=== PATIENT | female | born 1940 ===

== ENCOUNTER 2018-10-07 07:41 | Inpatient (IN) | payer MEDICAID, MEDICARE ==
--- NOTE | 2018-10-07 08:04 | C.PDOC ---
History Of Present Illness 78 year old female, whose past medical history includes diabetes, presents to the ED with sister for evaluation of chest pain which has been intermittent for 3 days. Patient states her chest pain is worse with deep breaths and associated with a "cramping" sensation to her left arm and hand. Patient also complains of an itchy rash to her chest, back and abdominal regions which began one week ago. She denies initial blistering, states her symptoms are not worse at night, and there are no family members with similar symptoms. Patient states she arrived from [place] via car last night. She also reports chills and headache. She denies fever, cough, vomiting, abdominal pain, leg pain. Patient did not take anything for her symptoms and denies any recent falls, injuries or trauma. Time Seen by Provider: 10/07/18 07:57 Chief Complaint (Nursing): Chest Pain History Per: Patient History/Exam Limitations: no limitations Onset/Duration Of Symptoms: Days (3) Current Symptoms Are (Timing): Still Present Quality: "Pain" Exacerbating Factors: Deep Breathing Additional History Per: Patient Past Medical History Reviewed: Historical Data, Nursing Documentation, Vital Signs Vital Signs: Last Vital Signs Temp 98 F 10/07/18 07:48 Pulse 77 10/07/18 07:48 Resp 20 10/07/18 07:48 BP 154/73 H 10/07/18 07:48 Pulse Ox 99 10/07/18 07:48 - Medical History PMH: No Chronic Diseases Surgical History: No Surg Hx Family History: States: Unknown Family Hx - Social History Hx Alcohol Use: No Hx Substance Use: No - Immunization History Hx Tetanus Toxoid Vaccination: No Hx Influenza Vaccination: No Hx Pneumococcal Vaccination: No Review Of Systems Constitutional: Positive for: Chills. Negative for: Fever Cardiovascular: Positive for: Chest Pain Respiratory: Negative for: Cough Gastrointestinal: Negative for: Vomiting, Abdominal Pain Musculoskeletal: Negative for: Leg Pain Skin: Positive for: Rash (itchy, to chest, back and abdomen ) Neurological: Positive for: Headache Physical Exam - Physical Exam Appears: Non-toxic, No Acute Distress Skin: Warm, Dry, Rash (diffuse papular rash to upper chest, back and waistband region of abdomen. scratch perera noted to left back. no erythema, increased warmth, pustules or vesicles. sparing of bilateral upper and lower extremities. no rash to webbed spaces.) Head: Atraumatic, Normacephalic Eye(s): bilateral: Normal Inspection Oral Mucosa: Moist Neck: Supple Chest: Symmetrical, No Deformity, No Tenderness Cardiovascular: Rhythm Regular, No Murmur Respiratory: Normal Breath Sounds, No Rales, No Rhonchi, No Wheezing Gastrointestinal/Abdominal: Soft, No Tenderness, No Guarding, No Rebound Extremity: Normal ROM, No Pedal Edema, Capillary Refill (less than 2 seconds), No Swelling Neurological/Psych: Normal Speech, Normal Cognition, Normal Cranial Nerves, Normal Motor, Normal Sensation ED Course And Treatment - Laboratory Results Result Diagrams: 10/07/18 08:43 10/07/18 09:30 ECG: Interpreted By Me, Viewed By Me ECG Rhythm: Sinus Rhythm Interpretation Of ECG: Sinus rhythm at rate 75bpm. Right axis deviation. Short VT intervals. Normal QRS and QT intervals. No ST elevations and depressions. Rate From EC O2 Sat by Pulse Oximetry: 99 (on RA ) Pulse Ox Interpretation: Normal - Other Rad CXR X-Ray: Viewed By Me, Read By Radiologist Interpretation: Chest x-ray single frontal view. HISTORY: Chest pain. Comparison: None available. Findings: No focal infiltrate or effusion. Heart size within normal limits. Degenerative changes in the spine and shoulders. Im pression: No focal infiltrate or effusion. - CT Scan/US CT Head Other Rad Studies (CT/US): Read By Radiologist, Radiology Report Reviewed CT/US Interpretation: Date of service: 10/07/2018. PROCEDURE: CT HEAD WITHOUT CONTRAST. HISTORY: LUE tonic movements. COMPARISON: None available. TECHNIQUE: Axial computed tomography images were obtained through the head/brain without intravenous contrast. Radiation dose: Total exam DLP = 922.92 mGy-cm. This CT exam was performed using one or more of the following d ose reduction techniques: Automated exposure control, adjustment of the mA and/or kV according to patient size, and/or use of iterative reconstruction technique. FINDINGS: HEMORRHAGE: There is a with defined heterogeneous mixed high attenuation and low attenuation lesion at the right occipital lobe may represent mass or subacute parenchymal hematoma with surrounding edema. There is linear high attenuation at the right superior frontal lobe may represent subarachnoid hemorrhage best seen on image 22 series 2. BRAIN: Possible mass or subacute hematoma at the right occipital lobe measures 3.4 centimeter in the transverse diameter and 2.8 centimeter in the AP diameter. Volume loss and whi te matter changes likely represent chronic microvascular ischemic disease. There is sub centimeter focal low attenuation at the left putamen/lentiform nucleus may represent old infarct. VENTRICLES: Unremarkable. No hydrocephalus. CALVARIUM: Unremarkable. PARANASAL SINUSES: Unremarkable as visualized. No significant inflammatory changes. MASTOID AIR CELLS: Unremarkable as visualized. No inflammatory changes. OTHER FINDINGS: None. IMPRESSION: Mass like lesion measures 3.4 x 2.8 centimeter demonstrates high attenuation in the central portion and peripheral low attenuation. The differential consideration include mass versus subacute hematoma. Linear high attenuation at right frontal lobe suspicious for subarachnoid hemorrhage. The above findings were reported to and discussed with the referring physician Dr. Saldana on 10/07/2018 at 10 a.m. Medical Decision Making Medical Decision Making: Progress: Bloodwork, CXR, and EKG ordered and reviewed. Aspirin PO given for chest pain. As per nurse, patient was noted to have a jerking movement to her left arm and hand. CT Head ordered. Results of CT d/w patient/sister. Patient and sister deny any falls, trauma or head injury. 1013: Case discussed with Dr. Bravo (neurologist [employer] controller). States that since patient did not fall, symptoms indicate she may have a mass. Advised to order MRI with and without contrast and give one gram of Keppra. MRI results d/w patient. Patient agreeable w/POC to admit to hospital for further evaluation and management. 13:50 Case d/w Dr. Mariann Arana who accepts pt to his service. Disposition Counseled Patient/Family Regarding: Studies Performed, Diagnosis - Disposition Disposition: HOSPITALIZED Disposition Time: 13:51 Condition: STABLE - Clinical Impression Clinical Impression: SAH (subarachnoid hemorrhage), Chest pain, Hematoma of brain - Scribe Statement The provider has reviewed the documentation as recorded by the Scribe (Latasha Solis) Provider Attestation: All medical record entries made by the Scribe were at my direction and personally dictated by me. I have reviewed the chart and agree that the record accurately reflects my personal performance of the history, physical exam, medical decision making, and the department course for this patient. I have also personally directed, reviewed, and agree with the discharge instructions and disposition.
[2018-10-07] MEDS ORDERED: Aspirin 325 mg EC Tablets PO STA (08:35)
--- NOTE | 2018-10-07 08:59 | RAD ---
Chest x-ray single frontal view HISTORY: Chest pain. Comparison: None available. Findings: No focal infiltrate or effusion. Heart size within normal limits. Degenerative changes in the spine and shoulders. Impression: No focal infiltrate or effusion.
[2018-10-07 09:18] LABS: BASO % 0.5 % (0.0-2.0); EOS # 0.6 K/uL (0.0-0.7); EOS % 8.1 % (0.0-4.0); HEMOGLOBIN 13.7 g/dL (11.0-16.0); LYMPH # 2.2 K/uL (1.0-4.3); LYMPH % 31.8 % (20.0-40.0); MEAN CELL VOLUME 88.3 fL (81.0-99.0); MEAN CORPUSCULAR HEMOGLOBIN 29.2 pg (27.0-31.0); MEAN CORPUSCULAR HGB CONC 33.1 g/dL (33.0-37.0); MEAN PLATELET VOLUME 8.3 fL (7.2-11.7); MONO # 0.5 K/uL (0.0-0.8); MONO % 7.8 % (0.0-10.0); NEUT # 3.5 K/uL (1.8-7.0); NEUT % 51.8 % (50.0-75.0); NRBC % 0.1 % (0.0-2.0); RBC 4.69 Mil/uL (3.80-5.20); RED CELL DISTRIBUTION WIDTH 13.8 % (11.5-14.5); WHITE BLOOD COUNT 6.8 K/uL (4.8-10.8)
[2018-10-07 09:52] LABS: BLOOD UREA NITROGEN 10 mg/dL (7-17); CALCIUM 9.2 mg/dl (8.6-10.4); GFR NON-AFRICAN AMERICAN > 60
[2018-10-07 09:53] LABS: ALB/GLOB RATIO 1.4 (1.0-2.1); ALBUMIN 4.7 g/dL (3.5-5.0); ALT/SGPT < 6 U/L (9-52); AST/SGOT 51 U/L (14-36)
[2018-10-07 09:58] LABS: INR 0.9; PARTIAL THROMBOPLASTIN TIME 33 SECONDS (21-34); PROTHROMBIN TIME 10.2 SECONDS (9.7-12.2)
[2018-10-07 10:01] LABS: B-TYPE NATRIURETIC PEPTIDE 232 pg/mL (0-900)
--- NOTE | 2018-10-07 10:05 | CT ---
Date of service: 10/07/2018 PROCEDURE: CT HEAD WITHOUT CONTRAST. HISTORY: LUE tonic movements COMPARISON: None available. TECHNIQUE: Axial computed tomography images were obtained through the head/brain without intravenous contrast. Radiation dose: Total exam DLP = 922.92 mGy-cm. This CT exam was performed using one or more of the following dose reduction techniques: Automated exposure control, adjustment of the mA and/or kV according to patient size, and/or use of iterative reconstruction technique. FINDINGS: HEMORRHAGE: There is a with defined heterogeneous mixed high attenuation and low attenuation lesion at the right occipital lobe may represent mass or subacute parenchymal hematoma with surrounding edema. There is linear high attenuation at the right superior frontal lobe may represent subarachnoid hemorrhage best seen on image 22 series 2. BRAIN: Possible mass or subacute hematoma at the right occipital lobe measures 3.4 centimeter in the transverse diameter and 2.8 centimeter in the AP diameter. Volume loss and white matter changes likely represent chronic microvascular ischemic disease. There is sub centimeter focal low attenuation at the left putamen/lentiform nucleus may represent old infarct. VENTRICLES: Unremarkable. No hydrocephalus. CALVARIUM: Unremarkable. PARANASAL SINUSES: Unremarkable as visualized. No significant inflammatory changes. MASTOID AIR CELLS: Unremarkable as visualized. No inflammatory changes. OTHER FINDINGS: None. IMPRESSION: Mass like lesion measures 3.4 x 2.8 centimeter demonstrates high attenuation in the central portion and peripheral low attenuation. The differential consideration include mass versus subacute hematoma. Linear high attenuation at right frontal lobe suspicious for subarachnoid hemorrhage. The above findings were reported to and discussed with the referring physician Dr. Saldana on 10/07/2018 at 10 a.m.
[2018-10-07 10:12] LABS: D DIMER < 200 ng/mlDDU (0-243)
--- NOTE | 2018-10-07 12:51 | MRI ---
Date of service: 10/07/2018 PROCEDURE: MRI BRAIN WITH AND WITHOUT CONTRAST HISTORY: mass COMPARISON: Comparison is made with the previous same-day CT of the head without contrast TECHNIQUE: Multiplanar, multisequence MR images of the brain were obtained with and without intravenous contrast enhancement. FINDINGS: HEMORRHAGE: There is heterogeneous hyperintense T1 and hyperintense T2 signal lesion/focal hemorrhage at the right occipital posterior parietal lobe likely represent subacute hematoma. There is trace right parietal subdural hematoma with maximum thickness of 1.9 millimeter. There are also small foci of subarachnoid hemorrhage noted at the right parietal frontal lobe. DWI: No definite evidence of acute territorial infarction. BRAIN PARENCHYMA: No evidence of significant mass effect from the presumed right occipital parenchymal hematoma. Mild surrounding edema is noted. Mild volume loss and mild chronic microvascular white matter ischemic disease. ENHANCEMENT: No definite evidence of enhancing mass lesion in the current study. VENTRICLES: Unremarkable. No hydrocephalus. CRANIUM: Unremarkable. ORBITS: Grossly unremarkable. PARANASAL SINUSES/MASTOIDS: Clear VASCULAR SYSTEM: Skull base flow voids intact. OTHER FINDINGS: None . IMPRESSION: 3.7 x 3.2 centimeter heterogeneous hyperintense T1 and T2 signal structure at right occipital lobe likely represent subacute/delayed acute parenchymal hematoma. Small/trace right temporal subdural hemorrhage with maximum thickness of 1.9 millimeter. Foci of subarachnoid hemorrhage at the right frontal parietal lobe. Volume loss and chronic microvascular white matter ischemic disease are noted. No definite evidence of enhancing mass lesion in the brain. Continuous follow-up reassessment by CT and MRI is suggested.
--- NOTE | 2018-10-07 22:05 | CP.PCM.HP ---
Present on Admission - Present on Admission Any Indicators Present on Admission: No Past Patient History - Past Social History Smoking Status: Never Smoked - ENDOCRINE/METABOLIC Hx Diabetes Mellitus Type 2: Yes - PSYCHIATRIC Hx Substance Use: No - SURGICAL HISTORY Hx Surgeries: No - ANESTHESIA Hx Anesthesia: No Meds Allergies/Adverse Reactions: Allergies Allergy/AdvReac Type Severity Reaction Status Date / Time No Known Allergies Allergy Verified 10/07/18 07:51 Results - Vital Signs Recent Vital Signs: Last Vital Signs Temp 98.6 F 10/07/18 21:39 Pulse 75 10/07/18 21:39 Resp 18 10/07/18 21:39 BP 130/74 10/07/18 21:39 Pulse Ox 97 10/07/18 21:39 - Labs Result Diagrams: 10/07/18 08:43 10/07/18 09:30 Labs: Laboratory Results - last 24 hr 10/07/18 10/07/18 10/07/18 07:53 08:43 09:30 WBC 6.8 RBC 4.69 Hgb 13.7 Hct 41.4 MCV 88.3 MCH 29.2 MCHC 33.1 RDW 13.8 Plt Count 301 MPV 8.3 Neut % (Auto) 51.8 Lymph % (Auto) 31.8 Jerome % (Auto) 7.8 Eos % (Auto) 8.1 H Baso % (Auto) 0.5 Neut # (Auto) 3.5 Lymph # (Auto) 2.2 Jerome # (Auto) 0.5 Eos # (Auto) 0.6 Baso # (Auto) 0.0 PT INR APTT D-Dimer, Quantitative Sodium 135 Potassium 4.9 Chloride 100 Carbon Dioxide 23 Anion Gap 16 BUN 10 Creatinine 0.5 L Est GFR ( Amer) > 60 Est GFR (Non-Af Amer) > 60 POC Glucose (mg/dL) 280 H Random Glucose 251 H Calcium 9.2 Magnesium 1.9 Total Bilirubin 1.5 H AST 51 H ALT < 6 L Alkaline Phosphatase 96 Troponin I 0.0130 NT-Pro-B Natriuret Pep 232 Total Protein 8.0 Albumin 4.7 Globulin 3.3 Albumin/Globulin Ratio 1.4 10/07/18 09:30 WBC RBC Hgb Hct MCV MCH MCHC RDW Plt Count MPV Neut % (Auto) Lymph % (Auto) Jerome % (Auto) Eos % (Auto) Baso % (Auto) Neut # (Auto) Lymph # (Auto) Jerome # (Auto) Eos # (Auto) Baso # (Auto) PT 10.2 INR 0.9 APTT 33 D-Dimer, Quantitative < 200 Sodium Potassium Chloride Carbon Dioxide Anion Gap BUN Creatinine Est GFR ( Amer) Est GFR (Non-Af Amer) POC Glucose (mg/dL) Random Glucose Calcium Magnesium Total Bilirubin AST ALT Alkaline Phosphatase Troponin I NT-Pro-B Natriuret Pep Total Protein Albumin Globulin Albumin/Globulin Ratio
[2018-10-07] MEDS: Hydrocortisone 2.5% Oint (20 gm) TOP SCH (22:42)
[2018-10-07] MEDS: (Novolin R) Insulin Human Regular 100 units/ml vial SC SCH (22:42)
[2018-10-07 23:26] LABS: CK-MB 0.31 ng/mL (0.0-3.38)
[2018-10-08] MEDS ORDERED: Pneumococcal 23-Valent Vaccine IM ONE (00:29)
--- NOTE | 2018-10-08 03:53 | HP ---
CHIEF COMPLAINT: Chest pain and dizziness. HISTORY OF PRESENT ILLNESS: This is a 78-year-old female with history of type 2 diabetes and who is noncompliant with her diet, medication, and followup. The patient in her usual status of health, is ambulatory and independent in activities of daily living. The patient was followed until the day of admission. She started having substernal chest pain, dull, nonradiating, not associated with diaphoresis. Along with that, she was having headache, dizziness, and she was also having cramping sensation in the left arm and hand and there was movement in the left arm which was noted by ER staff. According to her, chest pain is worse with deep inspiration, and the patient also has a itchy rash on the chest and arms and the back. The patient denies any initial blistering. According to her, her symptoms are not worse at night. She denies any chest pain on exertion. She denies any history of orthopnea, paroxysmal nocturnal dyspnea. Her headache is diffuse which is sharp which is intense when she is dizzy. By dizzy she means she is having off balance. She just arrived from [place] last night. She also has chills, headache. She denies any history of head injury, fall, loss of consciousness. There is no history of prior seizure. She denies any history of alcohol, drug abuse, and she denies any history of prior similar episode. There is no history of abdominal pain, nausea, vomiting, diarrhea. There is no history of polyuria, polydipsia, polyphagia. There is no history of sneezing, itchy eyes, itchy nose. There is no history of skin rash. There is no history of back pain, hip pain. She denies any history of tingling, numbness in the legs. PAST MEDICAL HISTORY: Type 2 diabetes. SOCIAL HISTORY: She is nonsmoker, non-ETOH user. CURRENT MEDICATIONS: Janumet. FAMILY HISTORY: Noncontributory. PHYSICAL EXAMINATION: GENERAL: An elderly female who is weak. Looks sick. VITAL SIGNS: Blood pressure is 110/50, pulse 77, respiratory rate 16, temperature 98.2. SKIN: Pale. No bruises. No purpura. No petechiae. No ecchymosis. HEENT: Atraumatic and normocephalic. Negative pallor. Negative jaundice. Extraocular movements are intact. NECK: Supple. No JVD. No lymph nodes. No thyromegaly. No carotid bruit. CHEST WALL: Bilateral symmetrical expansion. LUNGS: Clear. No rales. No rhonchi. CARDIOVASCULAR SYSTEM: PMI not localized. S1 and S2. Regular. No heave. No thrill. ABDOMEN: Soft, nontender. Bowel sounds are positive. EXTREMITIES: No clubbing, cyanosis, or edema. CENTRAL NERVOUS SYSTEM: The patient is awake, alert, and oriented x3. Cranial nerves II through XII are normal. Power 5/5 x4. Plantars are downgoing. Unable to get . She is bedbound. ASSESSMENT: 1. Intracerebral bleed with subarachnoid hemorrhage and there are hematomas in the brain. There is no trauma. There is no history of prior aneurysm. 2. Type 2 diabetes. 3. Seizure which was induced by the intracerebral bleed. PLAN: Admit. Neuro check. Fall, seizure precaution. Repeat CT of the head there. Neurology evaluation. Physical therapy. Jose Arana MD
[2018-10-08] MEDS: (Novolin R) Insulin Human Regular 100 units/ml vial SC SCH ×3 (08:39→21:42)
[2018-10-08] MEDS: Hydrocortisone 2.5% Oint (20 gm) TOP SCH ×2 (09:59→19:00)
--- NOTE | 2018-10-08 10:34 | CT ---
Date of service: 10/08/2018 PROCEDURE: CT HEAD WITHOUT CONTRAST. HISTORY: Intracranial bleed COMPARISON: 10/07/2018 TECHNIQUE: Axial computed tomography images were obtained through the head/brain without intravenous contrast. Radiation dose: Total exam DLP = 894.42 mGy-cm. This CT exam was performed using one or more of the following dose reduction techniques: Automated exposure control, adjustment of the mA and/or kV according to patient size, and/or use of iterative reconstruction technique. FINDINGS: HEMORRHAGE: Again identified is a prominent 3.7 x 2.7 centimeter ovoid area of central increased attenuation and peripheral low attenuation in the right occipital lobe which may represent a mass or subacute parenchymal hematoma with surrounding edema or additional etiology. Correlation with MRI would be helpful further evaluation if clinically indicated. Overall this appears stable since the prior study. Linear high attenuation at the right superior posterior frontal parietal region best demonstrated on series 4 images 41 through 49 consistent with subarachnoid hemorrhage which appears stable. BRAIN: Again identified is a prominent 3.7 x 2.7 centimeter ovoid area of central increased attenuation and peripheral low attenuation in the right occipital lobe which may represent a mass or subacute parenchymal hematoma with surrounding edema or additional etiology. Correlation with MRI would be helpful further evaluation if clinically indicated. Scattered focal lucencies in the subcortical and periventricular white matter suggestive for chronic microvascular ischemic change. Persistent 6 millimeter left basal ganglia lacunar infarct. VENTRICLES: Unremarkable. No hydrocephalus. CALVARIUM: Unremarkable. PARANASAL SINUSES: Unremarkable as visualized. No significant inflammatory changes. MASTOID AIR CELLS: Unremarkable as visualized. No inflammatory changes. OTHER FINDINGS: None. IMPRESSION: No significant interval change since the prior study. Again identified is a prominent 3.7 x 2.7 centimeter ovoid area of central increased attenuation and peripheral low attenuation in the right occipital lobe which may represent a mass or subacute parenchymal hematoma with surrounding edema or additional etiology. Correlation with MRI would be helpful for further evaluation if clinically indicated. Overall this appears stable since the prior study. Linear high attenuation at the right superior posterior frontal parietal region best demonstrated on series 4 images 41 through 49 consistent with subarachnoid hemorrhage which appears stable. Chronic microvascular ischemic change. Left basal ganglia lacunar infarct. Correlation with contrast-enhanced MRI may be helpful for further evaluation if clinically indicated.
--- NOTE | 2018-10-08 16:25 | CP.PCM.CON ---
History of Present Illness - History of Present Illness History of Present Illness: Neurology Consultation Note: Consult requested by Dr. Arana Mrs. Clark is a 78-year-old woman, who drove from [place] two days ago, and presented to the ED yesterday with complaints of chest pain as well as left arm discomfort and pain. She had a CT scan of the head done, that showed a right occipital chronic appearing hemorrhage as well as slight SDH and SAH. When I spoke with the patient and her daughter today, they described the left arm pain as a cramping, stiffness and inability to move it, associated with contortion of the face and twisting of the neck. This lasts for several minutes then resolves. The patient also complained of some changes in her vision, and has had trouble with ambulating normally as a result. Review of Systems - Constitutional Constitutional: As Per HPI - EENT Eyes: As Per HPI Ears: absent: As Per HPI, Decreased Hearing, Ear Discharge, Ear Pain, Tinnitus, Abnormal Hearing, Disequilibrium, Dizziness, Other Nose/Mouth/Throat: absent: As Per HPI, Epistaxis, Nasal Congestion, Nasal Discharge, Nasal Obstruction, Nasal Trauma, Nose Pain, Post Nasal Drip, Sinus Pain, Sinus Pressure, Bleeding Gums, Change in Voice, Dental Pain, Dry Mouth, Dysphagia, Halitosis, Hoarsness, Lip Swelling, Mouth Lesions, Mouth Pain, Odynophagia, Sore Throat, Throat Swelling, Tongue Swelling, Facial Pain, Neck Pain, Neck Mass, Other - Cardiovascular Cardiovascular: absent: As Per HPI, Acrocyanosis, Chest Pain, Chest Pain at Rest, Chest Pain with Activity, Claudication, Diaphoresis, Dyspnea, Dyspnea on Exertion, Edema, Irregular Heart Rhythm, Pain Radiating to Arm/Neck/Jaw, Leg Edema, Leg Ulcers, Lightheadedness, Orthopnea, Palpitations, Paroxysmal Nocturnal Dyspnea, Pedal Edema, Radiating Pain, Rapid Heart Rate, Slow Heart Rate, Syncope, Other - Respiratory Respiratory: absent: As Per HPI, Cough, Dyspnea, Hemoptysis, Dyspnea on Exertion, Wheezing, Snoring, Stridor, Pain on Inspiration, Chest Congestion, Excessive Mucous Production, Change in Mucous Color, Pain with Coughing, Other - Musculoskeletal Musculoskeletal: absent: As Per HPI, Abnormal Gait, Arthralgias, Atrophy, Back Pain, Deformity, Joint Swelling, Limited Range of Motion, Loss of Height, Muscle Cramps, Muscle Weakness, Myalgias, Neck Pain, Numbness, Radiating Pain into Limb, Stiffness, Tingling, Other - Integumentary Integumentary: absent: As Per HPI, Acne, Alopecia, Bleeding Lesions, Change in Hair, Change in Nails, Change in Pigmentation, Changing Lesions, Dry Skin, Erythema, Furuncle, Hirsutism, Lesions, New Lesions, Non-Healing Lesions, Photosensitivity, Pruritus, Rash, Skin Pain, Skin Ulcer, Sores, Striae, Swelling, Unusual Bruising, Wounds, Jaundice, Other - Neurological Neurological: As Per HPI - Psychiatric Psychiatric: absent: As Per HPI, Abnormal Sleep Pattern, Anhedonia, Anxiety, Auditory Hallucinations, Behavioral Changes, Change in Appetite, Change in Libido, Confusion, Depression, Difficulty Concentrating, Hallucinations, Homicidal Ideation, Hopelessness, Irritability, Memory Loss, Mood Swings, Panic Attacks, Paranoia, Suicidal Ideation, Visual Hallucinations, Tactile Hallucinations, Other - Endocrine Endocrine: absent: As Per HPI, Change in Body Appearance, Change in Libido, Cold Intolorance, Deepening of Voice, Excessive Sweating, Fatigue, Flushing, Heat Intolorance, Increase in Ring/Shoe/Hat Size, Palpitations, Polydipsia, Polyphagia, Polyuria, Other - Hematologic/Lymphatic Hematologic: absent: As Per HPI, Easy Bleeding, Easy Bruising, Lymphadenopathy, Other Past Patient History - Past Social History Smoking Status: Never Smoked - CARDIAC Hx Cardiac Disorders: No - PULMONARY Hx Respiratory Disorders: No - NEUROLOGICAL Hx Transient Ischemic Attacks (TIA): No - HEENT Hx HEENT Problems: No - RENAL Hx Chronic Kidney Disease: No - ENDOCRINE/METABOLIC Hx Diabetes Mellitus Type 2: Yes - HEMATOLOGICAL/ONCOLOGICAL Hx Blood Transfusions: No - INTEGUMENTARY Other/Comment: skin rashes on chest, lef arm and left upper back. - MUSCULOSKELETAL/RHEUMATOLOGICAL Hx Musculoskeletal Disorders: No Hx Falls: No - GASTROINTESTINAL Hx Gastrointestinal Disorders: No - GENITOURINARY/GYNECOLOGICAL Hx Genitourinary Disorders: No - PSYCHIATRIC Hx Substance Use: No - SURGICAL HISTORY Hx Surgeries: Yes Hx Appendectomy: Yes - ANESTHESIA Hx Anesthesia: No Hx Anesthesia Reactions: No Hx Malignant Hyperthermia: No Has any member of the family had a problem w/ anesthesia?: No Meds Allergies/Adverse Reactions: Allergies Allergy/AdvReac Type Severity Reaction Status Date / Time No Known Allergies Allergy Verified 10/07/18 07:51 - Medications Medications: Current Medications Acetaminophen (Tylenol 325mg Tab) 650 mg PO Q6 PRN PRN Reason: headache Hydrocortisone (Cortizone 2.5%) 1 gm TOP BID [facility] Last Admin: 10/08/18 09:59 Dose: 1 applic Influenza Virus Vaccine (Flucelvax Quad [id number] Syr) 60 mcg IM .ONCE ONE Stop: 10/10/18 10:01 Insulin Human Regular (Novolin R) 0 unit SC ACHS [facility]; Protocol Last Admin: 10/08/18 12:49 Dose: 3 units Levetiracetam (Keppra) 500 mg PO BID [facility] Last Admin: 10/08/18 10:00 Dose: 500 mg Pneumococcal Polyvalent Vaccine (Pneumovax 23 Vaccine) 0.5 ml IM .ONCE ONE Stop: 10/10/18 10:01 Rosuvastatin Calcium (Crestor) 10 mg PO [facility] Last Admin: 10/07/18 22:43 Dose: 10 mg Physical Exam - Constitutional Appears: Well - Head Exam Head Exam: ATRAUMATIC, NORMAL INSPECTION, NORMOCEPHALIC - Eye Exam Eye Exam: EOMI, Normal appearance, PERRL Pupil Exam: NORMAL ACCOMODATION, PERRL - ENT Exam ENT Exam: Mucous Membranes Moist, Normal Exam - Neck Exam Neck exam: Positive for: Normal Inspection - Respiratory Exam Respiratory Exam: Clear to Auscultation Bilateral, NORMAL BREATHING PATTERN - Cardiovascular Exam Cardiovascular Exam: REGULAR RHYTHM, +S1, +S2 - GI/Abdominal Exam GI & Abdominal Exam: Normal Bowel Sounds, Soft. absent: Tenderness - Extremities Exam Extremities exam: Positive for: normal inspection - Back Exam Back exam: NORMAL INSPECTION - Neurological Exam Neurological exam: Alert, CN II-XII Intact, Normal Gait, Oriented x3 Additional comments: Left side slight visual deficit noted. Left arm pronator drift. Reflexes brisk on the left with upgoing plantar response. Gait is wide-based. - Psychiatric Exam Psychiatric exam: Normal Affect, Normal Mood - Skin Skin Exam: Dry, Intact, Normal Color, Warm Results - Vital Signs Recent Vital Signs: Last Vital Signs Temp 98.2 F 10/08/18 07:41 Pulse 75 10/08/18 12:00 Resp 20 10/08/18 07:41 BP 124/52 L 10/08/18 07:41 Pulse Ox 95 10/08/18 08:00 - Labs Result Diagrams: 10/07/18 08:43 10/07/18 09:30 Labs: Laboratory Results - last 24 hr 10/07/18 22:56 Total Creatine Kinase 34 CK-MB (Mass) 0.31 Troponin I < 0.0120 Assessment & Plan (1) ICH (intracerebral hemorrhage) Assessment and Plan: Does not recall any trauma, this may be spontaneous, or could be hemorrhagic transformation of a previous ischemic stroke. The bleed appears chronic based on the resolution pattern on MRI and CT head. No further imaging is needed at this time. Will repeat MRI in 3 months. Status: Acute (2) Seizure Assessment and Plan: Continue Keppra 500 mg BID and will order EEG for further evaluation of focal seizures. Thank you for this consultation. Status: Acute
--- NOTE | 2018-10-08 21:31 | CP.PCM.PN ---
Subjective - Date & Time of Evaluation Date of Evaluation: 10/08/18 Time of Evaluation: 09:20 - Subjective Subjective: dictated Objective - Vital Signs/Intake and Output Vital Signs (last 24 hours): Temp Pulse Resp BP Pulse Ox 97.7 F 76 20 121/59 L 99 10/08/18 15:20 10/08/18 18:45 10/08/18 15:20 10/08/18 15:20 10/08/18 15:20 Intake and Output: 10/08/18 10/09/18 18:59 06:59 Intake Total 400 Balance 400 - Medications Medications: Current Medications Acetaminophen (Tylenol 325mg Tab) 650 mg PO Q6 PRN PRN Reason: headache Hydrocortisone (Cortizone 2.5%) 1 gm TOP BID [facility] Last Admin: 10/08/18 09:59 Dose: 1 applic Influenza Virus Vaccine (Flucelvax Quad [id number] Syr) 60 mcg IM .ONCE ONE Stop: 10/10/18 10:01 Insulin Human Regular (Novolin R) [address] [facility]; Protocol Last Admin: 10/08/18 12:49 Dose: 3 units Levetiracetam (Keppra) 500 mg PO BID [facility] Last Admin: 10/08/18 17:38 Dose: 500 mg Pneumococcal Polyvalent Vaccine (Pneumovax 23 Vaccine) 0.5 ml IM .ONCE ONE Stop: 10/10/18 10:01 Rosuvastatin Calcium (Crestor) 10 mg PO [facility] Last Admin: 10/07/18 22:43 Dose: 10 mg - Labs Labs: 10/07/18 08:43 10/07/18 09:30 PT 10.2 SECONDS (9.7-12.2) 10/07/18 09:30 INR 0.9 10/07/18 09:30 APTT 33 SECONDS (21-34) 10/07/18 09:30
--- NOTE | 2018-10-09 02:27 | PN ---
DATE: 10/08/2018 SUBJECTIVE: The patient is feeling better. She is more alert. Decreased headache. She is more stable. She is more alert. No nausea or vomiting. PHYSICAL EXAMINATION: VITAL SIGNS: Blood pressure 121/59, pulse 76, respiratory rate 20, temperature 97.7. LUNGS: Clear. CARDIOVASCULAR SYSTEM: S1 and S2, regular. ABDOMEN: Soft and nontender. Bowel sounds are positive. ASSESSMENT: 1. Intracerebral bleed. 2. Hypertension. 3. Type 2 diabetes. PLAN: The patient's seizure is due to her intracerebral bleed. We will medication. We will monitor the patient. Jose Arana MD
[2018-10-09] MEDS: (Novolin R) Insulin Human Regular 100 units/ml vial SC SCH ×4 (08:26→21:15)
[2018-10-09] MEDS: Hydrocortisone 2.5% Oint (20 gm) TOP SCH ×2 (10:42→17:56)
--- NOTE | 2018-10-09 11:56 | CARD ---
APPROVED REPORT Date of service: 10/08/2018 EXAM: Two-dimensional and M-mode echocardiogram with Doppler and color Doppler. Other Information Quality : AverageRhythm : NSR INDICATION CAD Chest Pain 2D DIMENSIONS LA [id number] (18-58mL) M-Mode DIMENSIONS RVDd1.28 (2.1-3.2cm)Left Atrium (MM)3.22 (2.5-4.0cm) IVSd0.79 (0.7-1.1cm)Aortic Root2.58 (2.2-3.7cm) LVDd4.71 (4.0-5.6cm)Aortic Cusp Exc.1.55 (1.5-2.0cm) PWd0.91 (0.7-1.1cm)FS (%) 25 % LVDs3.55 (2.0-3.8cm)LVEF (%)49 (>50%) Aortic Valve AoV Peak Ltxbwqdc156.6cm/Skye Peak GR.5mmHg Mitral Valve MV E Gzdibrpd09.5cm/sMV A Wfkycklg90.9cm/sE/A ratio0.7 TDI Lateral E' Peak V9.77cm/sMedial E' Peak V5.45cm/sE/Lateral E'6.9 E/Medial E'12.4 Tricuspid Valve TR Peak Ieaijfgk407rh/sTR Peak Gr.[id number] <Conclusion> Left ventricle: thickness: normal; size: normal; overall ejection fraction: 50%: diastolic filling pressures: normal Mitral valve: annulus: normal: leaflets: normal: excursion: normal; no significant trans-mitral gradient: no significant incompetence: left atrium: normal Aortic valve: leaflets: normal: excursion: normal; no significant trans-aortic gradient: No significant incompetence: aortic root: normal Right sided Structures: Pulmonary valve: normal; no significant incompetence; Tricuspid valve: normal; no significant incompetence: Intra-cardiac hemodynamics: pulmonary systolic pressures: normal; central venous pressures: normal No pericardial effusion
--- NOTE | 2018-10-09 23:20 | CP.PCM.PN ---
Subjective - Date & Time of Evaluation Date of Evaluation: 10/09/18 Time of Evaluation: 18:40 - Subjective Subjective: dictated Objective - Vital Signs/Intake and Output Vital Signs (last 24 hours): Temp Pulse Resp BP Pulse Ox 98.3 F 105 H 18 104/65 99 10/09/18 15:50 10/09/18 18:00 10/09/18 15:50 10/09/18 15:50 10/09/18 16:32 - Medications Medications: Current Medications Acetaminophen (Tylenol 325mg Tab) 650 mg PO Q6 PRN PRN Reason: headache Last Admin: 10/09/18 21:33 Dose: 650 mg Hydrocortisone (Cortizone 2.5%) 1 gm TOP BID [facility] Last Admin: 10/09/18 17:56 Dose: 1 applic Influenza Virus Vaccine (Flucelvax Quad [id number] Syr) 60 mcg IM .ONCE ONE Stop: 10/10/18 10:01 Insulin Human Regular (Novolin R) 0 unit SC [facility]; Protocol Last Admin: 10/09/18 21:15 Dose: Not Given Levetiracetam (Keppra) 500 mg PO BID [facility] Last Admin: 10/09/18 17:49 Dose: 500 mg Metformin HCl (Glucophage Xr) 1,000 mg PO BRK [facility] Last Admin: 10/09/18 08:26 Dose: 1,000 mg Pneumococcal Polyvalent Vaccine (Pneumovax 23 Vaccine) 0.5 ml IM .ONCE ONE Stop: 10/10/18 10:01 Rosuvastatin Calcium (Crestor) 10 mg PO HS [facility] Last Admin: 10/09/18 21:34 Dose: 10 mg Sitagliptin Phosphate (Januvia) 50 mg PO DAILY [facility] Last Admin: 10/09/18 09:46 Dose: 50 mg - Labs Labs: 10/07/18 08:43 10/07/18 09:30 PT 10.2 SECONDS (9.7-12.2) 10/07/18 09:30 INR 0.9 10/07/18 09:30 APTT 33 SECONDS (21-34) 10/07/18 09:30
--- NOTE | 2018-10-10 03:49 | PN ---
DATE: 10/09/2018 SUBJECTIVE: The patient has decreased headache. No fever. No chills. She has been seen by Neurology. PHYSICAL EXAMINATION: VITAL SIGNS: Blood pressure 104/65, pulse 84, respiratory rate 18, temperature 98.3, afebrile. LUNGS: Clear. No rales. No rhonchi. CARDIOPULMONARY SYSTEM: S1 and S2, regular. ABDOMEN: Soft, nontender. Bowel sounds are positive. ASSESSMENT: 1. Intracerebral bleed. 2. Hypertension. 3. Type 2 diabetes. PLAN: Physical therapy. Rehab. Monitor the patient. Jose Arana MD
[2018-10-10] MEDS: (Novolin R) Insulin Human Regular 100 units/ml vial SC SCH ×5 (08:46→23:01)
[2018-10-10] MEDS ORDERED: Pneumococcal 23-Valent Vaccine IM ONE (10:00)
[2018-10-10] MEDS ORDERED: Influenza Vaccine 60 mcg/0.5 mL SYR (4YR UP) IM ONE (10:00)
[2018-10-10] MEDS: Hydrocortisone 2.5% Oint (20 gm) TOP SCH ×2 (11:10→17:58)
--- NOTE | 2018-10-10 14:16 | CP.PCM.PN ---
Subjective - Date & Time of Evaluation Date of Evaluation: 10/10/18 Time of Evaluation: 14:13 - Subjective Subjective: Neuro Follow-Up Note: Mrs. Clark was evaluated this afternoon at bedside. Family present. Pt offers no new complaints today. She states that she still has weakness to her left arm. Per family member, the pt had an episode today of abnormal movements to her left arm just before the EEG. This lasted a few seconds per family. pt presently denies h/a, dizziness, visual changes, chest pain, palpitations, sob, cough, abd pain, n/v/d, paresthesias. Objective - Vital Signs/Intake and Output Vital Signs (last 24 hours): Temp Pulse Resp BP Pulse Ox 97.9 F 86 18 113/50 L 100 10/10/18 07:00 10/10/18 07:00 10/10/18 07:00 10/10/18 07:00 10/10/18 07:00 - Medications Medications: Current Medications Acetaminophen (Tylenol 325mg Tab) 650 mg PO Q6 PRN PRN Reason: headache Last Admin: 10/09/18 21:33 Dose: 650 mg Hydrocortisone (Cortizone 2.5%) 1 gm TOP BID [facility] Last Admin: 10/10/18 11:10 Dose: 1 applic Insulin Human Regular (Novolin R) 0 unit SC [facility]; Protocol Last Admin: 10/10/18 12:43 Dose: 4 units Levetiracetam (Keppra) 500 mg PO BID [facility] Last Admin: 10/10/18 11:10 Dose: 500 mg Metformin HCl (Glucophage Xr) 1,000 mg PO BRK [facility] Last Admin: 10/10/18 08:46 Dose: 1,000 mg Rosuvastatin Calcium (Crestor) 10 mg PO HS [facility] Last Admin: 10/09/18 21:34 Dose: 10 mg Sitagliptin Phosphate (Januvia) 50 mg PO DAILY [facility] Last Admin: 10/10/18 11:10 Dose: 50 mg - Labs Labs: 10/07/18 08:43 10/07/18 09:30 PT 10.2 SECONDS (9.7-12.2) 10/07/18 09:30 INR 0.9 10/07/18 09:30 APTT 33 SECONDS (21-34) 10/07/18 09:30 - Constitutional Appears: Well, Non-toxic, No Acute Distress - Head Exam Head Exam: ATRAUMATIC, NORMAL INSPECTION, NORMOCEPHALIC - Eye Exam Eye Exam: EOMI, Normal appearance, PERRL Pupil Exam: NORMAL ACCOMODATION, PERRL - ENT Exam ENT Exam: Mucous Membranes Moist - Neck Exam Neck Exam: Full ROM, Normal Inspection - Respiratory Exam Respiratory Exam: NORMAL BREATHING PATTERN - Extremities Exam Extremities Exam: Normal Inspection. absent: Calf Tenderness, Pedal Edema Additional comments: Able to move all extremities with some weakness to LUE + Left pronator drift noted - Neurological Exam Neurological Exam: Alert, Awake, CN II-XII Intact, Oriented x3 Neuro motor strength exam: Left Upper Extremity: 3 (nursing coordinator 3/5), Right Upper Extremity: 5 (nursing coordinator 5/5), Left Lower Extremity: 4, Right Lower Extremity: 4 Additional comments: Speech clear, fluid No facial asymmetry noted Able to move all extremities with some weakness to the LUE + Left pronator drift noted + dysmetria to left No sensory deficits Gait not assessed; PT notes reviewed - Psychiatric Exam Psychiatric exam: Normal Affect, Normal Mood - Skin Skin Exam: Normal Color Assessment and Plan (1) ICH (intracerebral hemorrhage) Assessment & Plan: Imaging reviewed: -Brain MRI (10/07/18): 3.7 x 3.2 centimeter heterogeneous hyperintense T1 and T2 signal structure at right occipital lobe likely represent subacute/delayed acute parenchymal hematoma. Small/trace right temporal subdural hemorrhage with maximum thickness of 1.9 millimeter. Foci of subarachnoid hemorrhage at the right frontal parietal lobe. Volume loss and chronic microvascular white matter ischemic disease are noted. No definite evidence of enhancing mass lesion in the brain. Continuous follow-up reassessment by CT and MRI is suggested. -CT Head (10/08/18): No significant interval change since the prior study. Again identified is a prominent 3.7 x 2.7 centimeter ovoid area of central increased attenuation and peripheral low attenuation in the right occipital lobe which may represent a mass or subacute parenchymal hematoma with surrounding edema or additional etiology. Correlation with MRI would be helpful for further evaluation if clinically indicated. Overall this appears stable since the prior study. Linear high attenuation at the right superior posterior frontal parietal region best demonstrated on series 4 images 41 through 49 consistent with subarachnoid hemorrhage which appears stable. Chronic microvascular ischemic change. Left basal ganglia lacunar infarct. Correlation with contrast-enhanced MRI may be helpful for further evaluation if clinically indicated. -CT Head (10/07/18): Mass like lesion measures 3.4 x 2.8 centimeter demonstrates high attenuation in the central portion and peripheral low attenuation. The d ifferential consideration include mass versus subacute hematoma. Linear high attenuation at right frontal lobe suspicious for subarachnoid hemorrhage. -Repeat MRI in 3 months. -Continue to hold AC or antiplatelets 2/2 intracranial hemorrhage. Status: Acute (2) Seizure Assessment & Plan: Imaging reviewed: -Brain MRI (10/07/18): 3.7 x 3.2 centimeter heterogeneous hyperintense T1 and T2 signal structure at right occipital lobe likely represent subacute/delayed acute parenchymal hematoma. Small/trace right temporal subdural hemorrhage with maximum thickness of 1.9 millimeter. Foci of subarachnoid hemorrhage at the right frontal parietal lobe. Volume loss and chronic microvascular white matter ischemic disease are noted. No definite evidence of enhancing mass lesion in the brain. Continuous follow-up reassessment by CT and MRI is suggested. -CT Head (10/08/18): No significant interval change since the prior study. Again identified is a prominent 3.7 x 2.7 centimeter ovoid area of central increased attenuation and peripheral low attenuation in the right occipital lobe which may represent a mass or subacute parenchymal hematoma with surrounding edema or additional etiology. Correlation with MRI would be helpful for further evaluation if clinically indicated. Overall this appears stable since the prior study. Linear high attenuation at the right superior posterior frontal parietal region best demonstrated on series 4 images 41 through 49 consistent with subarachnoid hemorrhage which appears stable. Chronic microvascular ischemic change. Left basal ganglia lacunar infarct. Correlation with contrast-enhanced MRI may be helpful for further evaluation if clinically indicated. -CT Head (10/07/18): Mass like lesion measures 3.4 x 2.8 centimeter demonstrates high attenuation in the central portion and peripheral low attenuation. The differential consideration include mass versus subacute hematoma. Linear high attenuation at right frontal lobe suspicious for subarachnoid hemorrhage. -EEG done today, results pending. -Continue Keppra 500 mg PO BID for now. -Continue seizure precautions. -Notify neuro team of any acute changes in pt's condition. Laura Valdes DNP, CLINICAL DOCUMENT IMPROVEMENT EDUCATOR Discussed with Dr. Reed Status: Acute
[2018-10-10 16:14] VITALS: RESP 20
--- NOTE | 2018-10-10 21:14 | CP.PCM.PN ---
Subjective - Date & Time of Evaluation Date of Evaluation: 10/10/18 Time of Evaluation: 08:40 - Subjective Subjective: dictated Objective - Vital Signs/Intake and Output Vital Signs (last 24 hours): Temp Pulse Resp BP Pulse Ox 97.8 F 90 20 99/60 L 96 10/10/18 15:00 10/10/18 15:00 10/10/18 15:00 10/10/18 15:00 10/10/18 15:00 - Medications Medications: Current Medications Acetaminophen (Tylenol 325mg Tab) 650 mg PO Q6 PRN PRN Reason: headache Last Admin: 10/09/18 21:33 Dose: 650 mg Hydrocortisone (Cortizone 2.5%) 1 gm TOP BID [facility] Last Admin: 10/10/18 17:58 Dose: 1 applic Insulin Glargine (Lantus) [address] [facility] Insulin Human Regular (Novolin R) 0 unit SC ACHS [facility]; Protocol Last Admin: 10/10/18 18:00 Dose: 2 units Levetiracetam (Keppra) 500 mg PO BID [facility] Last Admin: 10/10/18 18:00 Dose: 500 mg Metformin HCl (Glucophage Xr) 1,000 mg PO BRK [facility] Last Admin: 10/10/18 08:46 Dose: 1,000 mg Rosuvastatin Calcium (Crestor) 10 mg PO HS [facility] Last Admin: 10/09/18 21:34 Dose: 10 mg Sitagliptin Phosphate (Januvia) 50 mg PO DAILY [facility] Last Admin: 10/10/18 11:10 Dose: 50 mg - Labs Labs: 10/07/18 08:43 10/07/18 09:30 PT 10.2 SECONDS (9.7-12.2) 10/07/18 09:30 INR 0.9 10/07/18 09:30 APTT 33 SECONDS (21-34) 10/07/18 09:30
[2018-10-10] MEDS: (Lantus) Insulin Glargine, Recombinant SC SCH (23:01)
--- NOTE | 2018-10-11 00:15 | PN ---
DATE: 10/10/2018 SUBJECTIVE: The patient is ambulating. She feels better. She is more alert. She has decreased headache. She is ambulating. She feels better. No nausea or vomiting. PHYSICAL EXAMINATION: VITAL SIGNS: Blood pressure 113/50, pulse 77, respiratory rate 16, and temperature 97.9. LUNGS: Bilaterally clear. No rales. No rhonchi. CARDIOVASCULAR SYSTEM: PMI in fifth intercostal space. S1 and S2, regular. ABDOMEN: Soft and nontender. Bowel sounds are positive. EXTREMITIES: No clubbing, cyanosis or edema. CENTRAL NERVOUS SYSTEM: Awake, alert, and oriented x3. Cranial nerves II through XII are normal. Power 5/5 x4. Plantars are downgoing. ASSESSMENT: 1. Intracerebral bleed improving. 2. Poorly-controlled diabetes, add Lantus. 3. Type 2 diabetes. 4. Hypertension. PLAN: Add Lantus, physical therapy, rehab. Monitor patient. Jose Arana MD
[2018-10-11] MEDS: (Novolin R) Insulin Human Regular 100 units/ml vial SC SCH ×4 (08:45→21:48)
[2018-10-11] MEDS: Hydrocortisone 2.5% Oint (20 gm) TOP SCH ×2 (10:11→17:15)
--- NOTE | 2018-10-11 12:16 | CP.PCM.PN ---
Subjective - Date & Time of Evaluation Date of Evaluation: 10/11/18 Time of Evaluation: 12:16 - Subjective Subjective: Neuro Follow-Up Note: Mrs. Clark was evaluated this afternoon at bedside. No family present. Pt offers no new complaints today. She states that she is feeling better today and notes improvements with her weakness to her left arm. Pt presently denies h/a, dizziness, visual changes, chest pain, palpitations, sob, cough, abd pain, n/v/d, paresthesias. Objective - Vital Signs/Intake and Output Vital Signs (last 24 hours): Temp Pulse Resp BP Pulse Ox 97.5 F L 82 20 113/60 98 10/11/18 08:44 10/11/18 08:44 10/11/18 08:44 10/11/18 08:44 10/11/18 08:44 Intake and Output: 10/11/18 10/11/18 06:59 18:59 Intake Total 10 Balance 10 - Medications Medications: Current Medications Acetaminophen (Tylenol 325mg Tab) 650 mg PO Q6 PRN PRN Reason: headache Last Admin: 10/09/18 21:33 Dose: 650 mg Hydrocortisone (Cortizone 2.5%) 1 gm TOP BID [facility] Last Admin: 10/10/18 17:58 Dose: 1 applic Insulin Glargine (Lantus) 8 unit SC [facility] Last Admin: 10/10/18 23:01 Dose: 8 u Insulin Human Regular (Novolin R) 0 unit SC [facility]; Protocol Last Admin: 10/11/18 08:45 Dose: 2 units Levetiracetam (Keppra) 500 mg PO BID [facility] Last Admin: 10/11/18 10:12 Dose: 500 mg Metformin HCl (Glucophage Xr) 1,000 mg PO BRK [facility] Last Admin: 10/11/18 08:30 Dose: 1,000 mg Rosuvastatin Calcium (Crestor) 10 mg PO HS [facility] Last Admin: 10/10/18 23:00 Dose: 10 mg Sitagliptin Phosphate (Januvia) 50 mg PO DAILY [facility] Last Admin: 10/11/18 10:11 Dose: 50 mg - Labs Labs: 10/07/18 08:43 10/07/18 09:30 PT 10.2 SECONDS (9.7-12.2) 10/07/18 09:30 INR 0.9 10/07/18 09:30 APTT 33 SECONDS (21-34) 10/07/18 09:30 - Constitutional Appears: Well, Non-toxic, No Acute Distress - Head Exam Head Exam: ATRAUMATIC, NORMAL INSPECTION, NORMOCEPHALIC - Eye Exam Eye Exam: EOMI, Normal appearance, PERRL Pupil Exam: NORMAL ACCOMODATION, PERRL - ENT Exam ENT Exam: Mucous Membranes Moist - Neck Exam Neck Exam: Full ROM, Normal Inspection - Respiratory Exam Respiratory Exam: NORMAL BREATHING PATTERN - Extremities Exam Extremities Exam: Normal Inspection. absent: Calf Tenderness, Pedal Edema Additional comments: Able to move all extremities with some weakness to LUE, though improved compared to yesterday No left pronator drift today compared to yesterday - Neurological Exam Neurological Exam: Alert, Awake, CN II-XII Intact, Oriented x3, Reflexes Normal Neuro motor strength exam: Left Upper Extremity: 4 (telephone maintainer 4/5), Right Upper Extremity: 5 (telephone maintainer 5/5), Left Lower Extremity: 5, Right Lower Extremity: 5 Additional comments: Speech clear, fluid No facial asymmetry noted Able to move all extremities with some weakness to LUE, though improved compared to yesterday No left pronator drift today compared to yesterday Dysmetria to left improved today No sensory deficits Gait not assessed; PT notes reviewed - Psychiatric Exam Psychiatric exam: Normal Affect, Normal Mood - Skin Skin Exam: Normal Color Assessment and Plan (1) ICH (intracerebral hemorrhage) Assessment & Plan: Imaging reviewed: -Brain MRI (10/07/18): 3.7 x 3.2 centimeter heterogeneous hyperintense T1 and T2 signal structure at right occipital lobe likely represent subacute/delayed acute parenchymal hematoma. Small/trace right temporal subdural hemorrhage with maximum thickness of 1.9 millimeter. Foci of subarachnoid hemorrhage at the right frontal parietal lobe. Volume loss and chronic microvascular white matter ischemic disease are noted. No definite evidence of enhancing mass lesion in the brain. Continuous follow-up reassessment by CT and MRI is suggested. -CT Head (10/08/18): No significant interval change since the prior study. Again identified is a prominent 3.7 x 2.7 centimeter ovoid area of central increased attenuation and peripheral low attenuation in the right occipital lobe which may represent a mass or subacute parenchymal hematoma with surrounding edema or additional etiology. Correlation with MRI would be helpful for further evaluation if clinically indicated. Overall this appears stable since the prior study. Linear high attenuation at the right superior posterior frontal parietal region best demonstrated on series 4 images 41 through 49 consistent with subarachnoid hemorrhage which appears stable. Chronic microvascular ischemic change. Left basal ganglia lacunar infarct. Correlation with contrast-enhanced MRI may be helpful for further evaluation if clinically indicated. -CT Head (10/07/18): Mass like lesion measures 3.4 x 2.8 centimeter demonstrates high attenuation in the central portion and peripheral low attenuation. The differential consideration include mass versus subacute hematoma. Linear high attenuation at right frontal lobe suspicious for subarachnoid hemorrhage. -Repeat MRI in 3 months. -Continue to hold AC or antiplatelets 2/2 intracranial hemorrhage. -May f/u with Dr. Bravo in the office within 1 month for f/u of the ICH 2/2 CVA. Please provide pt with Dr. Bravo's office information. Status: Acute (2) Seizure Assessment & Plan: Imaging reviewed: -Brain MRI (10/07/18): 3.7 x 3.2 centimeter heterogeneous hyperintense T1 and T2 signal structure at right occipital lobe likely represent subacute/delayed acute parenchymal hematoma. Small/trace right temporal subdural hemorrhage with maximum thickness of 1.9 millimeter. Foci of subarachnoid hemorrhage at the right frontal parietal lobe. Volume loss and chronic microvascular white matter ischemic disease are noted. No definite evidence of enhancing mass lesion in the brain. Continuous follow-up reassessment by CT and MRI is suggested. -CT Head (10/08/18): No significant interval change since the prior study. Again identified is a prominent 3.7 x 2.7 centimeter ovoid area of central increased attenuation and peripheral low attenuation in the right occipital lobe which may represent a mass or subacute parenchymal hematoma with surrounding edema or additional etiology. Correlation with MRI would be helpful for further evaluation if clinically indicated. Overall this appears stable since the prior study. Linear high attenuation at the right superior posterior frontal parietal region best demonstrated on series 4 images 41 through 49 consistent with subarachnoid hemorrhage which appears stable. Chronic microvascular ischemic change. Left basal ganglia lacunar infarct. Correlation with contrast-enhanced MRI may be helpful for further evaluation if clinically indicated. -CT Head (10/07/18): Mass like lesion measures 3.4 x 2.8 centimeter demonstrates high attenuation in the central portion and peripheral low attenuation. The differential consideration include mass versus subacute hematoma. Linear high attenuation at right frontal lobe suspicious for subarachnoid hemorrhage. -EEG normal per Dr. Reed; official report pending. -Continue Keppra 500 mg PO BID upon discharge---please provided rx to pt upon d/c. -Notify neuro team of any acute changes in pt's condition. Reconsult prn. Laura Valdes DNP, [employer] SUPERVISOR Discussed with Dr. Reed Status: Acute
--- NOTE | 2018-10-11 15:06 | CP.PCM.PN ---
Subjective - Date & Time of Evaluation Date of Evaluation: 10/11/18 Time of Evaluation: 11:45 - Subjective Subjective: patient seen today denies any chest pain , sob, dizziness, weakness , numbness/ tinglings vss and labs - reviewed - stable oob ambulating the BR no deficit noted no overnight events reported by RN Objective - Vital Signs/Intake and Output Vital Signs (last 24 hours): Temp Pulse Resp BP Pulse Ox 97.5 F L 82 20 113/60 98 10/11/18 08:44 10/11/18 08:44 10/11/18 08:44 10/11/18 08:44 10/11/18 08:44 Intake and Output: 10/11/18 10/11/18 06:59 18:59 Intake Total 10 Balance 10 - Medications Medications: Current Medications Acetaminophen (Tylenol 325mg Tab) 650 mg PO Q6 PRN PRN Reason: headache Last Admin: 10/09/18 21:33 Dose: 650 mg Hydrocortisone (Cortizone 2.5%) 1 gm TOP BID [facility] Last Admin: 10/11/18 10:11 Dose: 1 applic Insulin Glargine (Lantus) 8 unit SC [facility] Last Admin: 10/10/18 23:01 Dose: 8 u Insulin Human Regular (Novolin R) 0 unit SC [facility]; Protocol Last Admin: 10/11/18 13:16 Dose: 4 units Levetiracetam (Keppra) 500 mg PO BID [facility] Last Admin: 10/11/18 10:12 Dose: 500 mg Metformin HCl (Glucophage Xr) 1,000 mg PO BRK [facility] Last Admin: 10/11/18 08:30 Dose: 1,000 mg Rosuvastatin Calcium (Crestor) 10 mg PO HS [facility] Last Admin: 10/10/18 23:00 Dose: 10 mg Sitagliptin Phosphate (Januvia) 50 mg PO DAILY [facility] Last Admin: 10/11/18 10:11 Dose: 50 mg - Labs Labs: 10/07/18 08:43 10/07/18 09:30 PT 10.2 SECONDS (9.7-12.2) 10/07/18 09:30 INR 0.9 10/07/18 09:30 APTT 33 SECONDS (21-34) 10/07/18 09:30 Assessment and Plan - Assessment and Plan (Free Text) Assessment: A/P 78 year old female, with pmhx of diabetes, who presents to the ED with sister for evaluation of chest pain which has been intermittent for 3 days admitted with SAH , Chest pain, Hematoma of brain patient started on keppra for twitching CT HEAD done- prominent 3.7 x 2.7 centimeter ovoid area of central increased attenuation and peripheral low attenuation in the right occipital lobe which may represent a mass or subacute parenchymal hematoma with surrounding edema or additional etiology. Correlation with MRI would be helpful for further evaluation if clinically indicated. Overall this appears stable since the prior study. Linear high attenuation at the right superior posterior frontal parietal region best demonstrated on series 4 images 41 through 49 consistent with subarachnoid hemorrhage which appears stable. Chronic microvascular ischemic change. Left basal ganglia lacunar infarct. EEG done - official report pending seen by Neuro team - as per neuro team , eeg normal and cleared for discharge home from neurology standpoint and f/u with Dr. Bravo office in 1 months and repeat brain MRI in 3 months continue keppra Pateitn blood sugar noted above 300 an d started on lantus Patient referred to [facility] as per insurance denies and sister notified by d/w Dr. arana, cleared for discharge home today and f/u with Dr. Arana office in 1 week RX given upon discharge
--- NOTE | 2018-10-11 17:14 | IP.NPCORE ---
Stroke Core Measure - CQM - Stroke Contranindication/Reason for not providing: Other If Other selected, reason for not providing: ICH Anticoagulation Prescribed for Atrial Flutter, Atrial Fibrillation and History of:: Medical Contraindication Present Contranindication/Reason for not providing: Risk for Bleeding, Other Other Contraindication/Reason for not providing: ICH Statin prescribed: Yes
[2018-10-11] MEDS: (Lantus) Insulin Glargine, Recombinant SC SCH (21:52)
--- NOTE | 2018-10-12 00:11 | CP.PCM.PN ---
Subjective - Date & Time of Evaluation Date of Evaluation: 10/11/18 Time of Evaluation: 17:19 - Subjective Subjective: dictated Objective - Vital Signs/Intake and Output Vital Signs (last 24 hours): Temp Pulse Resp BP Pulse Ox 99.1 F 90 20 118/72 98 10/11/18 16:00 10/11/18 16:50 10/11/18 16:50 10/11/18 16:50 10/11/18 16:50 - Medications Medications: Current Medications Acetaminophen (Tylenol 325mg Tab) 650 mg PO Q6 PRN PRN Reason: headache Last Admin: 10/11/18 18:44 Dose: 650 mg Hydrocortisone (Cortizone 2.5%) 1 gm TOP BID [facility] Last Admin: 10/11/18 17:15 Dose: 1 applic Insulin Glargine (Lantus) 8 unit SC [facility] Last Admin: 10/11/18 21:52 Dose: 8 u Insulin Human Regular (Novolin R) 0 unit SC [facility]; Protocol Last Admin: 10/11/18 21:48 Dose: Not Given Levetiracetam (Keppra) 500 mg PO BID [facility] Last Admin: 10/11/18 17:11 Dose: 500 mg Metformin HCl (Glucophage Xr) 1,000 mg PO BRK [facility] Last Admin: 10/11/18 08:30 Dose: 1,000 mg Rosuvastatin Calcium (Crestor) 10 mg PO HS [facility] Last Admin: 10/11/18 21:52 Dose: 10 mg Sitagliptin Phosphate (Januvia) 50 mg PO DAILY [facility] Last Admin: 10/11/18 10:11 Dose: 50 mg - Labs Labs: 10/07/18 08:43 10/07/18 09:30 PT 10.2 SECONDS (9.7-12.2) 10/07/18 09:30 INR 0.9 10/07/18 09:30 APTT 33 SECONDS (21-34) 10/07/18 09:30
[2018-10-12 02:36] VITALS: O2SAT 99
--- NOTE | 2018-10-12 02:58 | PN ---
DATE: 10/12/2018 SUBJECTIVE: The patient is feeling better. Less headache. Less dizziness. She is ambulating, and she is for discharge. PHYSICAL EXAMINATION: VITAL SIGNS: Blood pressure 118/72, pulse 90, respiratory rate 20, temperature 99.1. LUNGS: Clear. CARDIOVASCULAR SYSTEM: S1, S2. Regular. ABDOMEN: Soft. ASSESSMENT: 1. Intracerebral bleed. 2. Hypertension. 3. Diabetes. PLAN: Physical therapy. Monitor the patient. Jose Arana MD
[2018-10-12 07:40] VITALS: BP 144/67; PULSE 75; TEMP 97.8
[2018-10-12] MEDS: (Novolin R) Insulin Human Regular 100 units/ml vial SC SCH ×2 (08:12→12:47)
[2018-10-12] MEDS: Hydrocortisone 2.5% Oint (20 gm) TOP SCH (09:15)
--- NOTE | 2018-10-12 22:48 | CP.PCM.DIS ---
Provider - Provider Date of Admission: 10/07/18 13:57 Attending physician: Jose Arana MD Consults: 10/07/18 18:03 Neurology Consult Routine Comment: Consulting Provider: Oneil Bravo Consulting Physician: Oneil Bravo Reason for Consult: ICB 10/08/18 00:29 Inpatient [employer] Core Measures Referral Routine Comment: protocol Physician Instructions: protcol Reason For Exam: chest pain Time Spent in preparation of Discharge (in minutes): 30 Hospital Course - Lab Results Lab Results: Most Recent Lab Values WBC 6.8 K/uL (4.8-10.8) 10/07/18 08:43 RBC 4.69 Mil/uL (3.80-5.20) 10/07/18 08:43 Hgb 13.7 g/dL (11.0-16.0) 10/07/18 08:43 Hct 41.4 % (34.0-47.0) 10/07/18 08:43 MCV 88.3 fL (81.0-99.0) 10/07/18 08:43 MCH 29.2 pg (27.0-31.0) 10/07/18 08:43 MCHC 33.1 g/dL (33.0-37.0) 10/07/18 08:43 RDW 13.8 % (11.5-14.5) 10/07/18 08:43 Plt Count 301 K/uL (130-400) 10/07/18 08:43 MPV 8.3 fL (7.2-11.7) 10/07/18 08:43 Neut % (Auto) 51.8 % (50.0-75.0) 10/07/18 08:43 Lymph % (Auto) 31.8 % (20.0-40.0) 10/07/18 08:43 [place] % (Auto) 7.8 % (0.0-10.0) 10/07/18 08:43 Eos % (Auto) 8.1 % (0.0-4.0) H 10/07/18 08:43 Baso % (Auto) 0.5 % (0.0-2.0) 10/07/18 08:43 Neut # (Auto) 3.5 K/uL (1.8-7.0) 10/07/18 08:43 Lymph # (Auto) 2.2 K/uL (1.0-4.3) 10/07/18 08:43 [place] # (Auto) 0.5 K/uL (0.0-0.8) 10/07/18 08:43 Eos # (Auto) 0.6 K/uL (0.0-0.7) 10/07/18 08:43 Baso # (Auto) 0.0 K/uL (0.0-0.2) 10/07/18 08:43 PT 10.2 SECONDS (9.7-12.2) 10/07/18 09:30 INR 0.9 10/07/18 09:30 APTT 33 SECONDS (21-34) 10/07/18 09:30 Fibrinogen 283 mg/dL (200-400) 10/12/18 13:57 D-Dimer, Quantitative < 200 ng/mlDDU (0-243) 10/07/18 09:30 Sodium 135 mmol/L (132-148) 10/07/18 09:30 Potassium 4.9 mmol/L (3.6-5.2) 10/07/18 09:30 Chloride 100 mmol/L (98-107) 10/07/18 09:30 Carbon Dioxide 23 mmol/L (22-30) 10/07/18 09:30 Anion Gap 16 (10-20) 10/07/18 09:30 BUN 10 mg/dL (7-17) 10/07/18 09:30 Creatinine 0.5 mg/dL (0.7-1.2) L 10/07/18 09:30 Est GFR ( Amer) > 60 10/07/18 09:30 Est GFR (Non-Af Amer) > 60 10/07/18 09:30 POC Glucose (mg/dL) 312 mg/dL (65-110) H 10/12/18 11:02 Random Glucose 251 mg/dL (65-105) H 10/07/18 09:30 Calcium 9.2 mg/dl (8.6-10.4) 10/07/18 09:30 Magnesium 1.9 mg/dL (1.6-2.3) 10/07/18 09:30 Total Bilirubin 1.5 mg/dL (0.2-1.3) H 10/07/18 09:30 AST 51 U/L (14-36) H 10/07/18 09:30 ALT < 6 U/L (9-52) L 10/07/18 09:30 Alkaline Phosphatase 96 U/L (38-126) 10/07/18 09:30 Total Creatine Kinase 34 U/L (30-135) 10/07/18 22:56 CK-MB (Mass) 0.31 ng/mL (0.0-3.38) 10/07/18 22:56 Troponin I < 0.0120 ng/mL (0.00-0.120) 10/07/18 22:56 NT-Pro-B Natriuret Pep 232 pg/mL (0-900) 10/07/18 09:30 Total Protein 8.0 g/dL (6.3-8.3) 10/07/18 09:30 Albumin 4.7 g/dL (3.5-5.0) 10/07/18 09:30 Globulin 3.3 gm/dL (2.2-3.9) 10/07/18 09:30 Albumin/Globulin Ratio 1.4 (1.0-2.1) 10/07/18 09:30 Homocysteine 9.0 umol/L (4.7-12.6) 10/12/18 13:57 Discharge Exam - Head Exam Head Exam: ATRAUMATIC, NORMAL INSPECTION, NORMOCEPHALIC Discharge Plan - Discharge Medications Prescriptions: Blood-Glucose Meter, Drum-Type [Accu-Chek] 1 each TID #1 kit Blood Sugar Diagnostic, Drum [Accu-Chek Compact] 1 each TID 30 Days strip Lancets [Accu-Chek Fastclix] 1 each TID 30 Days each Insulin Glargine,Hum.rec.anlog [Basaglar Kwikpen U-100] 8 unit SQ HS #5 insuln.pen Rosuvastatin Calcium [Crestor] 10 mg PO HS #30 tab Sitagliptin Phos/Metformin HCl [Janumet Xr 50-1,000 mg Tablet] 1 tab PO BID #30 tbmp.24hr Levetiracetam [Keppra] 750 mg PO BID #60 tablet - Follow Up Plan Condition: STABLE Disposition: HOME/ ROUTINE Instructions: Heart Healthy Diet, Seizures, Adult (DC), Chest Pain (DC), Subarachnoid Hemorrhage (DC), Hemorrhagic Stroke, Levetiracetam, Rosuvastatin, Insulin Glargine Additional Instructions: Please follow up with Dr. Yasmeen briggs 1 week Please follow up with Dr. Bravo office in 1 month- call and make appointment Please continue medication as per med. rec. please check your BS before each meal and record and bring to MD office next visi t NEED REPEAT MRI IN 3 MONTHS - Referrals: Oneil Bravo MD [Staff Provider] - Jose Arana MD [Staff Provider] -
--- NOTE | 2018-10-13 10:19 | DS ---
DISCHARGE DIAGNOSES: Intracerebral bleed, hypertension and type 2 diabetes, poorly controlled. HISTORY OF PRESENT ILLNESS: This is a 78-year-old female with history of diabetes, hypertension, hyperlipidemia. She is compliant with her diet, medication, and followup. She came in with headache, dizziness, found to have intracerebral bleed. She was seen by Neurology. No further workup. Our treatment was recommended. The patient is feeling better, and the patient is for discharge. She is on conservative approach. No surgery. No intervention. Avoid falls. PHYSICAL EXAMINATION: VITAL SIGNS: Blood pressure 124/67, pulse 75, respiratory rate 20, temperature 97.9. Afebrile. LUNGS: Clear. No rales. No rhonchi. CARDIOVASCULAR SYSTEM: S1, S2 regular. ABDOMEN: Soft, nontender. Bowel sounds are positive. PLAN: Discharge the patient. Monitor the patient. Jose Arana MD
== END 2018-10-12 16:42 | disposition home or self-care (01) | DRG 66 ==
LOC: C.ER 07:41 → C.9E 13:57 → C.6T 20:36
PROVIDERS: ADMIT Internal Medicine; ATTEND Internal Medicine
DX: I60.9 Nontraumatic subarachnoid hemorrhage, unspecified (principal); R56.9 Unspecified convulsions; I10 Essential (primary) hypertension; Z91.11 Patient's noncompliance with dietary regimen; E11.65 Type 2 diabetes mellitus with hyperglycemia

== ENCOUNTER 2018-11-03 11:10 | Observation (INO) | payer MEDICARE ==
[2018-11-03 11:22] VITALS: BMI 20.5
[2018-11-03] MEDS ORDERED: Iodixanol 320 mg/ml 150 ml Bottle IV ONE (11:40)
[2018-11-03 11:53] LABS: BASO % 0.3 % (0.0-2.0); EOS # 0.2 K/uL (0.0-0.7); EOS % 2.9 % (0.0-4.0); LYMPH # 1.8 K/uL (1.0-4.3); LYMPH % 23.4 % (20.0-40.0); MEAN CELL VOLUME 88.1 fL (81.0-99.0); MEAN CORPUSCULAR HEMOGLOBIN 30.3 pg (27.0-31.0); MEAN CORPUSCULAR HGB CONC 34.4 g/dL (33.0-37.0); MEAN PLATELET VOLUME 7.9 fL (7.2-11.7); MONO # 0.4 K/uL (0.0-0.8); MONO % 5.3 % (0.0-10.0); NEUT # 5.2 K/uL (1.8-7.0); NEUT % 68.1 % (50.0-75.0); NRBC % 0.1 % (0.0-2.0); RBC 4.28 Mil/uL (3.80-5.20); RED CELL DISTRIBUTION WIDTH 13.7 % (11.5-14.5); WHITE BLOOD COUNT 7.6 K/uL (4.8-10.8)
--- NOTE | 2018-11-03 12:13 | RAD ---
Chest x-ray single frontal view HISTORY: Infiltrate. COMPARISON: 10/07/2018 FINDINGS: Minimal patchy increased markings at the left lung base. Clinical correlation. Mild diffuse increased interstitial lung markings. Right hilar prominence. Atherosclerotic calcification at the aortic knob. Tortuous aorta. Top normal heart size. Degenerative changes in the spine and shoulders. IMPRESSION: Minimal patchy increased markings at the left lung base. Clinical correlation. Mild diffuse increased interstitial lung markings. Right hilar prominence. Atherosclerotic calcification at the aortic knob. Tortuous aorta.
[2018-11-03 12:20] LABS: ALB/GLOB RATIO 1.4 (1.0-2.1); ALBUMIN 4.1 g/dL (3.5-5.0); ALT/SGPT 13 U/L (9-52); AST/SGOT 27 U/L (14-36); CALCIUM 9.4 mg/dl (8.6-10.4); GFR NON-AFRICAN AMERICAN > 60
[2018-11-03 12:29] LABS: BLOOD UREA NITROGEN 12 mg/dL (7-17)
--- NOTE | 2018-11-03 13:38 | CT ---
Date of service: 11/03/2018 PROCEDURE: CT HEAD WITHOUT CONTRAST. HISTORY: LAY/dizziness - h/o SAH 1 month ago COMPARISON: Noncontrast head CT performed 10/08/18 TECHNIQUE: Axial computed tomography images were obtained through the head/brain without intravenous contrast. Radiation dose: Total exam DLP = 950.86 mGy-cm. This CT exam was performed using one or more of the following dose reduction techniques: Automated exposure control, adjustment of the mA and/or kV according to patient size, and/or use of iterative reconstruction technique. FINDINGS: BRAIN: Diffuse atrophy with prominence of the ventricles and sulci noted. Re-identified 2.8 x 2.4 cm ovoid region of central increased attenuation peripheral low-attenuation lesion in the right occipital lobe, possibly mass or parenchymal hematoma with surrounding edema. Intracranial atherosclerosis. 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 Scattered periventricular and subcortical white matter hypodensities, which are nonspecific, but often seen with chronic microvascular ischemic disease. No acute intracranial hemorrhage identified. Please note that MRI with diffusion imaging is more sensitive in the detection of acute ischemic event. VENTRICLES: No hydrocephalus. CALVARIUM: Unremarkable. PARANASAL SINUSES: Unremarkable as visualized. No significant inflammatory changes. MASTOID AIR CELLS: Unremarkable as visualized. No inflammatory changes. OTHER FINDINGS: None. IMPRESSION: Re-identified 2.8 x 2.4 cm ovoid region of central increased attenuation peripheral low-attenuation lesion in the right occipital lobe, possibly mass or parenchymal hematoma with surrounding edema. 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 Nonspecific white matter changes.
--- NOTE | 2018-11-03 13:46 | CT ---
Date of service: 11/03/2018 PROCEDURE: CTA HEAD AND NECK WITH CONTRAST HISTORY: LAY/dizziness - h/o SAH 1 month ago COMPARISON: None available. TECHNIQUE: Initial noncontrast head CT was performed. Subsequently, CT angiogram of the head and neck were performed after the intravenous administration of 80 mL of Omnipaque 350. Contiguous 1.5mm thick images were obtained in the axial plane of the neck. 2-D coronal and sagittal MPR images were obtained. Imaging postprocessing was performed with 3-D images also obtained. A delayed contrast head CT was also obtained. This CT exam was performed using one or more of the following dose reduction techniques: Automated exposure control, adjustment of the mA and/or kV according to patient size, and/or use of iterative reconstruction technique. Contrast dose: 100 mL Visipaque 320 Radiation dose: Total exam DLP = 442.46 mGy-cm. FINDINGS: HEAD: There are coarse atherosclerotic calcifications in the cavernous carotid and supraclinoid segments of the intracranial internal carotid arteries. Right: The intracranial internal carotid artery, and anterior and middle cerebral arteries are widely patent. Left: The intracranial internal carotid artery, and anterior and middle cerebral arteries are widely patent. Posterior circulation: The visualized intracranial vertebral arteries, basilar artery and posterior cerebral arteries are widely patent. There is no endoluminal filling defect to suggest thrombus. There is no intracranial saccular aneurysm. NECK: There is a three vessel aortic arch. There is no stenosis at the origins of the great vessels at the level of the aortic arch. There are advanced coarse atherosclerotic calcifications in the carotid bulbs and proximal internal carotid artery is, worse on the left. Right Carotid: On the right, the common carotid, internal carotid and external carotid arteries are widely patent. There is no hemodynamically significant stenosis in the internal carotid artery by NASCET criteria. Left Carotid: On the left, the common carotid, internal carotid and external carotid arteries are widely patent. There is approximately 63% stenosis in the proximal ICA. There is no hemodynamically significant stenosis in the internal carotid artery by NASCET criteria. The vertebral arteries are widely patent. The visualized soft tissues of the neck are normal. There is mild scattered centrilobular emphysema in the lungs. IMPRESSION: 1. No evidence of endoluminal thrombus,occlusion or definite significant stenosis in the intracranial arteries. 2. Coarse calcified atherosclerotic plaques in the carotid bulbs and proximal internal carotid arteries. Approximately 65% stenosis in the left proximal ICA. No evidence of hemodynamically significant stenosis in the internal carotid arteries. 3. Patent bilateral vertebral arteries.
[2018-11-03] MEDS: Sodium Chloride 0.9% 1,000 ML IV SCH (14:36)
[2018-11-03] MEDS ORDERED: Sodium Chloride 0.9% 1,000 ML ONE (14:41)
--- NOTE | 2018-11-03 16:44 | C.PDOC ---
History Of Present Illness 78 year old female presents to ED with complaint of mild headache and dizziness since early this morning. Patient states that it feels like the room is spinning. Patient has a PMHx of subarachnoid hemorrhage that occurred 1 month ago and does not require surgical intervention. Patient denies chest pain, SOB, and fever. Time Seen by Provider: 11/03/18 11:28 Chief Complaint (Nursing): Weakness/Neurological Deficit History Per: Patient History/Exam Limitations: no limitations Onset/Duration Of Symptoms: Hrs Current Symptoms Are (Timing): Still Present Fall Associated With With Symptoms: No Past Medical History Reviewed: Historical Data, Nursing Documentation, Vital Signs Vital Signs: Last Vital Signs Temp 97.7 F 11/03/18 11:22 Pulse 68 11/03/18 14:31 Resp 13 11/03/18 14:31 BP 133/61 11/03/18 14:31 Pulse Ox 98 11/03/18 14:31 - Medical History PMH: Seizures Denies: Chronic Kidney Disease, TIA Other PMH: subarachnoid hemorrhage Surgical History: Appendectomy Family History: States: Unknown Family Hx - Social History Hx Alcohol Use: No Hx Substance Use: No - Immunization History Hx Tetanus Toxoid Vaccination: No Hx Influenza Vaccination: No Hx Pneumococcal Vaccination: No Review Of Systems Constitutional: Negative for: Fever, Chills Cardiovascular: Negative for: Chest Pain Respiratory: Negative for: Shortness of Breath Gastrointestinal: Negative for: Nausea, Vomiting Neurological: Positive for: Headache, Dizziness. Negative for: Weakness, Numbness Physical Exam - Physical Exam Appears: Well, Non-toxic, No Acute Distress Skin: Normal Color, Warm, Dry Head: Atraumatic, Normacephalic Oral Mucosa: Dry Neck: Normal ROM, Supple Chest: Symmetrical, No Deformity Cardiovascular: Rhythm Regular, No Murmur Respiratory: No Accessory Muscle Use, No Rales, No Rhonchi, No Wheezing Gastrointestinal/Abdominal: Soft, No Tenderness Neurological/Psych: Oriented x3, Normal Speech, Normal Cognition ED Course And Treatment - Laboratory Results Result Diagrams: 11/03/18 11:47 11/03/18 11:47 Lab Results: Troponin I < 0.0120 ng/mL (0.00-0.120) 11/03/18 11:47 Total Bilirubin 0.4 mg/dL (0.2-1.3) 11/03/18 11:47 AST 27 U/L (14-36) 11/03/18 11:47 ALT 13 U/L (9-52) 11/03/18 11:47 Alkaline Phosphatase 71 U/L (38-126) 11/03/18 11:47 Total Protein 6.9 g/dL (6.3-8.3) 11/03/18 11:47 Albumin 4.1 g/dL (3.5-5.0) 11/03/18 11:47 Globulin 2.8 gm/dL (2.2-3.9) 11/03/18 11:47 Albumin/Globulin Ratio 1.4 (1.0-2.1) 11/03/18 11:47 O2 Sat by Pulse Oximetry: 98 (in RA) - Other Rad CXR X-Ray: Interpreted by Me, Viewed By Me Interpretation: IMPRESSION: Minimal patchy increased markings at the left lung base. Clinical correlation. Mild diffuse increased interstitial lung markings. Right hilar prominence. Atherosclerotic calcification at the aortic knob. Tortuous aorta. - CT Scan/US Head CTA Other Rad Studies (CT/US): Interpreted By Me, Read By Radiologist CT/US Interpretation: IMPRESSION: 1. No evidence of endoluminal thrombus,occlusion or definite significant stenosis in the intracranial arteries. 2. Coarse calcified atherosclerotic plaques in the carotid bulbs and proximal internal carotid arteries. Approximately 65% stenosis in the left pro ximal ICA. No evidence of hemodynamically significant stenosis in the internal carotid arteries. 3. Patent bilateral vertebral arteries. Head CT Other Rad Studies (CT/US): Interpreted By Me, Read By Radiologist CT/US Interpretation: IMPRESSION: Re-identified 2.8 x 2.4 cm ovoid region of central increased attenuation peripheral low-attenuation lesion in the right occipital lobe, possibly mass or parenchymal hematoma with surrounding edema. 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 Nonspecific white matter changes. Brain MRI Other Rad Studies (CT/US): Interpreted By Me, Read By Radiologist CT/US Interpretation: IMPRESSION: 1. Interval evolution of known 2.0 x 3.7 cm late subacute hematoma in the right occipital lobe without significant surrounding vasogenic edema, midline shift or herniation. 2. Evolving small subarachnoid hemorrhage in the right posterior frontal and posterior temporal lobes with mild surrounding vasogenic edema in the right posterior temporal lobe. 3. Mild chronic microangiopathic changes and mild age-related global parenchymal volume loss. Medical Decision Making Medical Decision Making: Impression:78 year old female presents to ED with complaint of mild headache and dizziness since early this morning Plan; EKG, CXR, CTA Head , Head CT, and Brain MRI Labs ordered with CMP, CBC, and troponin Patient given IV fluids and Zofran Progress: Patient vomited once in the ER. Patient given Zofran for nausea. Spoke with Dr. Arana who accepted patient to service in Tele. Dr. Reed consulted for neurology. Disposition - Disposition Disposition: HOSPITALIZED Disposition Time: 13:45 Condition: FAIR - Clinical Impression Clinical Impression: Dizziness - Scribe Statement The provider has reviewed the documentation as recorded by the Scribe (Akanksha Anthony) All medical record entries made by the Scribe were at my direction and personally dictated by me. I have reviewed the chart and agree that the record accurately reflects my personal performance of the history, physical exam, medical decision making, and the department course for this patient. I have also personally directed, reviewed, and agree with the discharge instructions and disposition.
--- NOTE | 2018-11-03 16:57 | MRI ---
Date of service: 11/03/2018 PROCEDURE: MRI BRAIN WITHOUT CONTRAST HISTORY: dizziness - h/o SAH 1 month ago COMPARISON: CT head without contrast from 11/03/2018 and MRI brain without and with intravenous contrast from 10/07/2018 TECHNIQUE: Multiplanar, multisequence MR images of the brain were obtained without intravenous contrast enhancement. FINDINGS: HEMORRHAGE: There is an evolving 2.0 x 3.7 cm well-circumscribed late subacute hematoma in the left occipital lobe without significant surrounding vasogenic edema, mass effect or midline shift. There is a peripheral T2 hypointense rim which demonstrates increased magnetic susceptibility on gradient images consistent with hemosiderin deposit donato. There is an evolving chronic small right posterior frontal subarachnoid hemorrhage. There is also right posterior temporal subarachnoid hemorrhage with mild surrounding vasogenic edema, improved since the prior examination DWI: No evidence of an acute or early subacute infarction. BRAIN PARENCHYMA: There are mild chronic microangiopathic changes. There is no mass or mass effect. The midline sagittal structures are normal. VENTRICLES: There is mild age-related global parenchymal volume loss and proportionate enlargement of the ventricles and cortical sulci. Prominent perivascular space in the left basal ganglia CRANIUM: There is normal bone marrow signal pattern. ORBITS: Grossly unremarkable. PARANASAL SINUSES/MASTOIDS: Predominantly clear. VASCULAR SYSTEM: There are normal signal voids in the larger intracranial arteries. OTHER FINDINGS: None. IMPRESSION: 1. Interval evolution of known 2.0 x 3.7 cm late subacute hematoma in the right occipital lobe without significant surrounding vasogenic edema, midline shift or herniation. 2. Evolving small subarachnoid hemorrhage in the right posterior frontal and posterior temporal lobes with mild surrounding vasogenic edema in the right posterior temporal lobe. 3. Mild chronic microangiopathic changes and mild age-related global parenchymal volume loss.
[2018-11-03] MEDS ORDERED: Dextrose 50% SYRINGE Inj (50 ml) IV PRN (17:21)
[2018-11-03] MEDS ORDERED: Glucagon Recombinant 1 mg Inj IM PRN (17:21)
[2018-11-03] MEDS: (Novolog) Insulin Aspart, Recombinant 100 u/ml 10 ml vial SC SCH (21:34)
[2018-11-04] MEDS: Sodium Chloride 0.9% 1,000 ML IV SCH ×3 (04:25→22:46)
[2018-11-04] MEDS: (Novolog) Insulin Aspart, Recombinant 100 u/ml 10 ml vial SC SCH ×4 (07:34→22:00)
--- NOTE | 2018-11-04 10:53 | CARD ---
APPROVED REPORT Date of service: 11/03/2018 EKG Measurement Heart [id number] <Conclusion> Normal sinus rhythm Normal ECG
--- NOTE | 2018-11-04 12:18 | CP.PCM.PN ---
Subjective - Date & Time of Evaluation Date of Evaluation: 11/04/18 Time of Evaluation: 12:17 - Subjective Subjective: CT and MRI demonstrate ICH from about 1 month ago nothing acute no neurosurgical intervention indicated Objective - Vital Signs/Intake and Output Vital Signs (last 24 hours): Temp Pulse Resp BP Pulse Ox 98.1 F 63 18 102/61 99 11/04/18 08:30 11/04/18 08:30 11/04/18 08:30 11/04/18 08:30 11/04/18 08:30 Intake and Output: 11/04/18 11/04/18 06:59 18:59 Intake Total 560 Balance 560 - Medications Medications: Current Medications Dextrose (Dextrose 50% Inj) 0 ml IV STAT PRN; Protocol PRN Reason: Hypoglycemia Protocol Dextrose (Glutose 15) 0 gm PO ONCE PRN; Protocol PRN Reason: Hypoglycemia Protocol Glucagon (Glucagen Diagnostic Kit) 0 mg IM STAT PRN; Protocol PRN Reason: Hypoglycemia Protocol Sodium Chloride (Sodium Chloride 0.9%) 1,000 mls @ 70 mls/hr IV .[id number] [facility] Last Admin: 11/04/18 04:25 Dose: Not Given Dextrose (Dextrose 5% In Water 1000 Ml) 1,000 mls @ 0 mls/hr IV .Q0M PRN; Protocol PRN Reason: Hypoglycemia Protocol Insulin Aspart (Novolog) 0 unit SC ACHS [facility]; Protocol Last Admin: 11/04/18 07:34 Dose: Not Given Levetiracetam (Keppra) 750 mg PO BID [facility] Last Admin: 11/04/18 09:29 Dose: 750 mg Metformin HCl (Glucophage Xr) 1,000 mg PO BID [facility] Last Admin: 11/04/18 09:29 Dose: 1,000 mg Rosuvastatin Calcium (Crestor) 10 mg PO HS [facility] Last Admin: 11/03/18 21:36 Dose: 10 mg Sitagliptin Phosphate (Januvia) 50 mg PO BID [facility] Last Admin: 11/04/18 09:29 Dose: 50 mg - Labs Labs: 11/03/18 11:47 11/03/18 11:47
--- NOTE | 2018-11-04 15:38 | CP.PCM.CON ---
History of Present Illness - History of Present Illness History of Present Illness: Neurology consult called by DR. Lima. NEurology consult dictated. IN brief, patient is well known to our service who was admitted for dizziness, as perceived by her daughter, who is my patient as well. ON my examination, she has no complaints and is back to baseline. She is cleared to go home. DR. monte Neurology Past Patient History - Past Social History Smoking Status: Never Smoked - CARDIAC Hx Cardiac Disorders: No - PULMONARY Hx Respiratory Disorders: No - NEUROLOGICAL Hx Seizures: Yes Hx Transient Ischemic Attacks (TIA): No - HEENT Hx HEENT Problems: No - RENAL Hx Chronic Kidney Disease: No - ENDOCRINE/METABOLIC Hx Diabetes Mellitus Type 2: Yes - HEMATOLOGICAL/ONCOLOGICAL Hx Blood Disorders: No - INTEGUMENTARY Hx Dermatological Problems: Yes Other/Comment: skin rashes on chest, lef arm and left upper back. - MUSCULOSKELETAL/RHEUMATOLOGICAL Hx Musculoskeletal Disorders: No Hx Falls: No - GASTROINTESTINAL Hx Gastrointestinal Disorders: No - GENITOURINARY/GYNECOLOGICAL Hx Genitourinary Disorders: No - PSYCHIATRIC Hx Substance Use: No - SURGICAL HISTORY Hx Appendectomy: Yes - ANESTHESIA Hx Anesthesia: No Hx Anesthesia Reactions: No Hx Malignant Hyperthermia: No Meds Allergies/Adverse Reactions: Allergies Allergy/AdvReac Type Severity Reaction Status Date / Time No Known Allergies Allergy Verified 10/07/18 07:51 - Medications Medications: Current Medications Dextrose (Dextrose 50% Inj) 0 ml IV STAT PRN; Protocol PRN Reason: Hypoglycemia Protocol Dextrose (Glutose 15) 0 gm PO ONCE PRN; Protocol PRN Reason: Hypoglycemia Protocol Glucagon (Glucagen Diagnostic Kit) 0 mg IM STAT PRN; Protocol PRN Reason: Hypoglycemia Protocol Sodium Chloride (Sodium Chloride 0.9%) 1,000 mls @ 70 mls/hr IV .[id number] [facility] Last Admin: 11/04/18 08:00 Dose: 70 mls/hr Dextrose (Dextrose 5% In Water 1000 Ml) 1,000 mls @ 0 mls/hr IV .Q0M PRN; Protocol PRN Reason: Hypoglycemia Protocol Insulin Aspart (Novolog) 0 unit SC ACHS [facility]; Protocol Last Admin: 11/04/18 13:18 Dose: 8 units Levetiracetam (Keppra) 750 mg PO BID [facility] Last Admin: 11/04/18 09:29 Dose: 750 mg Metformin HCl (Glucophage Xr) 1,000 mg PO BID [facility] Last Admin: 11/04/18 09:29 Dose: 1,000 mg Rosuvastatin Calcium (Crestor) 10 mg PO [facility] Last Admin: 11/03/18 21:36 Dose: 10 mg Sitagliptin Phosphate (Januvia) 50 mg PO BID [facility] Last Admin: 11/04/18 09:29 Dose: 50 mg Results - Vital Signs Recent Vital Signs: Last Vital Signs Temp 98.1 F 11/04/18 08:30 Pulse 63 11/04/18 08:30 Resp 18 11/04/18 08:30 BP 102/61 11/04/18 08:30 Pulse Ox 99 11/04/18 08:30 - Labs Result Diagrams: 11/03/18 11:47 11/03/18 11:47 Labs: Laboratory Results - last 24 hr 11/03/18 11/03/18 11/04/18 16:55 21:03 06:27 POC Glucose (mg/dL) 163 H 183 H 143 H
--- NOTE | 2018-11-04 21:35 | CP.PCM.HP ---
Present on Admission - Present on Admission Any Indicators Present on Admission: No Past Patient History - Past Social History Smoking Status: Never Smoked - CARDIAC Hx Cardiac Disorders: No - PULMONARY Hx Respiratory Disorders: No - NEUROLOGICAL Hx Seizures: Yes Hx Transient Ischemic Attacks (TIA): No - HEENT Hx HEENT Problems: No - RENAL Hx Chronic Kidney Disease: No - ENDOCRINE/METABOLIC Hx Diabetes Mellitus Type 2: Yes - HEMATOLOGICAL/ONCOLOGICAL Hx Blood Disorders: No - INTEGUMENTARY Hx Dermatological Problems: Yes Other/Comment: skin rashes on chest, lef arm and left upper back. - MUSCULOSKELETAL/RHEUMATOLOGICAL Hx Musculoskeletal Disorders: No Hx Falls: No - GASTROINTESTINAL Hx Gastrointestinal Disorders: No - GENITOURINARY/GYNECOLOGICAL Hx Genitourinary Disorders: No - PSYCHIATRIC Hx Substance Use: No - SURGICAL HISTORY Hx Appendectomy: Yes - ANESTHESIA Hx Anesthesia: No Hx Anesthesia Reactions: No Hx Malignant Hyperthermia: No Meds Allergies/Adverse Reactions: Allergies Allergy/AdvReac Type Severity Reaction Status Date / Time No Known Allergies Allergy Verified 10/07/18 07:51 Results - Vital Signs Recent Vital Signs: Last Vital Signs Temp 98.1 F 11/04/18 08:30 Pulse 63 11/04/18 08:30 Resp 18 11/04/18 08:30 BP 102/61 11/04/18 08:30 Pulse Ox 99 11/04/18 08:30 - Labs Result Diagrams: 11/03/18 11:47 11/03/18 11:47 Labs: Laboratory Results - last 24 hr 11/04/18 06:27 POC Glucose (mg/dL) 143 H
--- NOTE | 2018-11-05 05:35 | HP ---
CHIEF COMPLAINT: Altered headache. HISTORY OF PRESENT ILLNESS: This is a 78-year-old female. The patient according to the daughter who is on the bedside has the mild headache and dizziness that started yesterday and there was some spinning sensation in the room. In the past, a month ago, she was treated by me for subarachnoid hemorrhage and discharged. There were no need for surgical intervention. The patient is right now in the bed with the daughter on the bedside who speaks German. According to the daughter, there has been a rash and she has been itching and she uses medications. Sometime it helps with the rash. According to the daughter, if the dizziness is better, the patient is feeling better. There is no shortness of breath or chest pain. No nausea or vomiting. There is no history of polyuria, polydipsia, or polyphagia. There is no history of hematuria or pyuria. There is no history of sneezing, itchy eyes, or itchy nose. There is no history of head injury, fall or loss of consciousness. There is no further details available. ALLERGIES: UNKNOWN. CURRENT MEDICATION: At home, she is on Keppra, Crestor, Janumet and Basaglar insulin. SOCIAL HISTORY: Nonsmoker, non-EtOH user. PHYSICAL EXAMINATION: GENERAL: An elderly female, in no acute distress. VITAL SIGNS: Blood pressure 102/61, pulse 63, respiratory rate 18, temperature 98.1. SKIN: The patient has rash all over the body which is maculopapular, brownish color. HEENT: Atraumatic and normocephalic. Negative pallor. Negative jaundice. Extraocular movements are intact. NECK: Supple. No JVD. No lymph nodes. No thyromegaly. No carotid bruits. CHEST WALL: Bilateral symmetrical expansion. No tenderness. No deformity. LUNGS: Clear. No rales. No rhonchi. CARDIOVASCULAR: PMI not localized. S1, S2, regular. No heave. No thrill. ABDOMEN: Soft, nontender. Bowel sounds are positive. EXTREMITIES: No clubbing, cyanosis or edema. RECTAL: Negative. GENITAL: Negative. CENTRAL NERVOUS SYSTEM: Awake, alert, oriented x3. Cranial nerves II through XII are normal. Power 5/5 x4. Plantars are downgoing. ASSESSMENT: 1. Vertigo with a prior history of subarachnoid hemorrhage. There is no new hemorrhage. The patient has been seen by Neurology. 2. Skin rash. 3. Hypertension. PLAN: Admit. Detailed orders are written. Seen and examined. Jose Arana MD
[2018-11-05] MEDS: (Novolog) Insulin Aspart, Recombinant 100 u/ml 10 ml vial SC SCH ×3 (07:57→17:14)
--- NOTE | 2018-11-05 17:04 | CP.PCM.PN ---
Subjective - Date & Time of Evaluation Date of Evaluation: 11/05/18 Time of Evaluation: 11:00 - Subjective Subjective: alert, awake, denies sob or chest pains. Objective - Vital Signs/Intake and Output Vital Signs (last 24 hours): Temp Pulse Resp BP Pulse Ox 98.6 F 83 20 112/59 L 98 11/05/18 07:25 11/05/18 08:55 11/05/18 07:25 11/05/18 07:25 11/05/18 11:08 Intake and Output: 11/05/18 11/05/18 06:59 18:59 Intake Total 560 Balance 560 - Medications Medications: Current Medications Dextrose (Dextrose 50% Inj) 0 ml IV STAT PRN; Protocol PRN Reason: Hypoglycemia Protocol Dextrose (Glutose 15) 0 gm PO ONCE PRN; Protocol PRN Reason: Hypoglycemia Protocol Glucagon (Glucagen Diagnostic Kit) 0 mg IM STAT PRN; Protocol PRN Reason: Hypoglycemia Protocol Sodium Chloride (Sodium Chloride 0.9%) 1,000 mls @ 70 mls/hr IV .[id number] [facility] Last Admin: 11/04/18 22:46 Dose: 70 mls/hr Dextrose (Dextrose 5% In Water 1000 Ml) 1,000 mls @ 0 mls/hr IV .Q0M PRN; Protocol PRN Reason: Hypoglycemia Protocol Insulin Aspart (Novolog) 0 unit SC ACHS [facility]; Protocol Last Admin: 11/05/18 12:08 Dose: 4 units Levetiracetam (Keppra) 750 mg PO BID [facility] Last Admin: 11/05/18 10:22 Dose: 750 mg Metformin HCl (Glucophage Xr) 1,000 mg PO BID [facility] Last Admin: 11/05/18 10:23 Dose: 1,000 mg Rosuvastatin Calcium (Crestor) 10 mg PO HS [facility] Last Admin: 11/04/18 22:45 Dose: 10 mg Sitagliptin Phosphate (Januvia) 50 mg PO BID [facility] Last Admin: 11/05/18 10:22 Dose: 50 mg - Labs Labs: 11/03/18 11:47 11/03/18 11:47 Assessment and Plan - Assessment and Plan (Free Text) Assessment: 78 year old female admitted with syncope, dizziness, seen and examined. Alert, awake, ambulatory with assistance. Discussed with DR Arana, plan to discharge home today. Advised to continue present medications and follow up with PMD in 1 week. Advised to bring all the medications to the office to review.
[2018-11-05 17:48] VITALS: BP 145/73; PULSE 80; RESP 18; TEMP 98; O2SAT 100
--- NOTE | 2018-11-05 21:42 | CP.PCM.DIS ---
Provider - Provider Date of Admission: 11/03/18 14:03 Attending physician: Jose Arana MD Consults: 11/03/18 14:04 Neurology Consult Routine Comment: Consulting Provider: Steven Reed Consulting Physician: Steven Reed Reason for Consult: recurrent dizziness 11/04/18 10:18 Physician Consult Routine Comment: Consulting Provider: Silvano Clemons Consulting Physician: Silvano Clemons Reason for Consult: SAH Time Spent in preparation of Discharge (in minutes): 30 Hospital Course - Lab Results Lab Results: Most Recent Lab Values WBC 7.6 K/uL (4.8-10.8) 11/03/18 11:47 RBC 4.28 Mil/uL (3.80-5.20) 11/03/18 11:47 Hgb 13.0 g/dL (11.0-16.0) 11/03/18 11:47 Hct 37.7 % (34.0-47.0) 11/03/18 11:47 MCV 88.1 fL (81.0-99.0) 11/03/18 11:47 MCH 30.3 pg (27.0-31.0) 11/03/18 11:47 MCHC 34.4 g/dL (33.0-37.0) 11/03/18 11:47 RDW 13.7 % (11.5-14.5) 11/03/18 11:47 Plt Count 240 K/uL (130-400) 11/03/18 11:47 MPV 7.9 fL (7.2-11.7) 11/03/18 11:47 Neut % (Auto) 68.1 % (50.0-75.0) 11/03/18 11:47 Lymph % (Auto) 23.4 % (20.0-40.0) 11/03/18 11:47 Boyle % (Auto) 5.3 % (0.0-10.0) 11/03/18 11:47 Eos % (Auto) 2.9 % (0.0-4.0) 11/03/18 11:47 Baso % (Auto) 0.3 % (0.0-2.0) 11/03/18 11:47 Neut # (Auto) 5.2 K/uL (1.8-7.0) 11/03/18 11:47 Lymph # (Auto) 1.8 K/uL (1.0-4.3) 11/03/18 11:47 Boyle # (Auto) 0.4 K/uL (0.0-0.8) 11/03/18 11:47 Eos # (Auto) 0.2 K/uL (0.0-0.7) 11/03/18 11:47 Baso # (Auto) 0.0 K/uL (0.0-0.2) 11/03/18 11:47 Sodium 139 mmol/L (132-148) 11/03/18 11:47 Potassium 4.0 mmol/L (3.6-5.2) 11/03/18 11:47 Chloride 102 mmol/L (98-107) 11/03/18 11:47 Carbon Dioxide 29 mmol/L (22-30) 11/03/18 11:47 Anion Gap 11 (10-20) 11/03/18 11:47 BUN 12 mg/dL (7-17) 11/03/18 11:47 Creatinine 0.7 mg/dL (0.7-1.2) 11/03/18 11:47 Est GFR ( Amer) > 60 11/03/18 11:47 Est GFR (Non-Af Amer) > 60 11/03/18 11:47 POC Glucose (mg/dL) 149 mg/dL (65-110) H 11/05/18 17:10 Random Glucose 130 mg/dL (65-105) H D 11/03/18 11:47 Calcium 9.4 mg/dl (8.6-10.4) 11/03/18 11:47 Total Bilirubin 0.4 mg/dL (0.2-1.3) 11/03/18 11:47 AST 27 U/L (14-36) 11/03/18 11:47 ALT 13 U/L (9-52) 11/03/18 11:47 Alkaline Phosphatase 71 U/L (38-126) 11/03/18 11:47 Troponin I < 0.0120 ng/mL (0.00-0.120) 11/03/18 11:47 Total Protein 6.9 g/dL (6.3-8.3) 11/03/18 11:47 Albumin 4.1 g/dL (3.5-5.0) 11/03/18 11:47 Globulin 2.8 gm/dL (2.2-3.9) 11/03/18 11:47 Albumin/Globulin Ratio 1.4 (1.0-2.1) 11/03/18 11:47 Discharge Plan - Follow Up Plan Condition: FAIR Disposition: HOME/ ROUTINE Instructions: Heart Healthy Diet, Diabetes Exchange Diet, Diabetes Diet , Dizziness, Nonvertigo, (DC), Near Fainting (DC) Additional Instructions: continue withe present meds follow up with PMD in 1 week Referrals: Oneil Bravo MD [Staff Provider] - Jose Arana MD [Staff Provider] -
--- NOTE | 2018-11-06 20:53 | DS ---
DISCHARGE DIAGNOSES: Chronic subarachnoid hemorrhage, hypertension, hyperlipidemia, and rash. HISTORY OF PRESENT ILLNESS: This is a 78-year-old female with history of chronic subarachnoid hemorrhage. She was brought into the emergency room because of recurrent headache, dizziness, and vertigo and there was a possibility of rebleed. The patient was admitted to the floor. MRI and CT head was done and no new bleed was seen and the patient was cleared for discharge by the Neurology. DISCHARGE CONDITION: The patient is stable upon discharge. PHYSICAL EXAMINATION: VITAL SIGNS: Blood pressure 145/73, pulse 80, respiratory rate 18, temperature 98. LUNGS: Clear. CARDIOVASCULAR SYSTEM: S1 and S2, regular. ABDOMEN: Soft. PLAN: Discharge the patient. Jose Arana MD
== END 2018-11-05 19:54 | disposition home or self-care (01) ==
LOC: C.ER 11:10 → C.6T 14:03
PROVIDERS: ADMIT Internal Medicine; ATTEND Internal Medicine
DX: R42 Dizziness and giddiness (principal); E11.9 Type 2 diabetes mellitus without complications; E78.5 Hyperlipidemia, unspecified; R21 Rash and other nonspecific skin eruption; I10 Essential (primary) hypertension; Z86.73 Personal history of transient ischemic attack (TIA), and cerebral infarction without residual deficits
CPT/HCPCS: 70450; 70496; 70498; 70551; 71045; 80053; 82948; 84484; 85025; 93005; 96374; 99285; G0378; J2405; J7030; Q9967

== ENCOUNTER 2018-11-23 12:31 | Outpatient (CLI) | payer MEDICARE | END 2018-11-23 12:32 | disposition home or self-care (01) | LOC: C.CTH 12:31 | DX: I61.1 Nontraumatic intracerebral hemorrhage in hemisphere, cortical (principal) ==

== ENCOUNTER 2018-12-01 13:13 | Inpatient (IN) | payer MEDICAID, MEDICARE ==
[2018-12-01 13:13] VITALS: BMI 20.5
--- NOTE | 2018-12-01 13:31 | C.PDOC ---
History Of Present Illness 78 y/o female,w/PMhx of seizures ( on Keppra), intercranial hemorrhage ( 2 months prior), diabetes, and hypercholesterolemia, presents to the ER complaining of dizziness which began 2 days ago. Patient states that she had physical therapy and the she began having mild headache. Then, patient began having dizziness. She describes the dizziness as vertigo and she notes that dizziness has been worsening. Patient is also complaining of RUQ, epigastric, and suprapubic abdominal pain which began yesterday. She describes the pain as throbbing. She also had diffuse weakness. Otherwise, patient denies having unilateral weakness, slurred speech, fever,chills, neck stiffness, CP,SOB,nausea, vomiting,diarrhea, constipation, and urinary symptoms. Time Seen by Provider: 12/01/18 13:15 Chief Complaint (Nursing): Dizziness/Lightheaded History Per: Patient History/Exam Limitations: no limitations Onset/Duration Of Symptoms: Days Current Symptoms Are (Timing): Still Present Severity: Moderate Past Medical History Reviewed: Historical Data, Nursing Documentation, Vital Signs Vital Signs: Last Vital Signs Temp 98.3 F 12/01/18 13:24 Pulse 69 12/01/18 13:24 Resp 20 12/01/18 13:24 BP 161/72 H 12/01/18 13:24 Pulse Ox 100 12/01/18 13:24 Primary Care Provider: Jose Arana - Medical History PMH: Hypercholesterolemia, Seizures Denies: Chronic Kidney Disease, TIA Surgical History: Appendectomy Family History: States: No Known Family Hx - Social History Hx Alcohol Use: No Hx Substance Use: No - Immunization History Hx Tetanus Toxoid Vaccination: No Hx Influenza Vaccination: No Hx Pneumococcal Vaccination: No Review Of Systems Constitutional: Positive for: Weakness. Negative for: Fever, Chills Eyes: Negative for: Vision Change ENT: Negative for: Ear Discharge Cardiovascular: Negative for: Chest Pain Respiratory: Negative for: Shortness of Breath Gastrointestinal: Positive for: Abdominal Pain. Negative for: Nausea, Vomiting, Diarrhea Genitourinary: Negative for: Dysuria, Frequency, Incontinence, Hematuria Musculoskeletal: Negative for: Neck Pain, Shoulder Pain Skin: Negative for: Rash, Lesions Neurological: Positive for: Weakness, Dizziness. Negative for: Numbness, Change in Speech, Confusion, Seizures, Altered Mental Status, Headache Physical Exam - Physical Exam Appears: Well, Non-toxic, No Acute Distress Skin: Normal Color, Warm, Dry Head: Atraumatic, Normacephalic Eye(s): bilateral: Normal Inspection, PERRL, EOMI Nose: Normal Oral Mucosa: Moist Tongue: Normal Appearing Lips: Normal Appearing Throat: Normal, No Erythema, No Exudate Neck: Normal ROM, No Midline Cervical Tenderness, No Paracervical Tenderness, Supple, Other (no meningeal signs) Chest: Symmetrical Cardiovascular: Rhythm Regular Respiratory: Normal Breath Sounds, No Rales, No Rhonchi, No Wheezing Gastrointestinal/Abdominal: Soft, Tenderness (epigastric and suprapubic tenderness), No Guarding, No Rebound Back: Normal Inspection, No CVA Tenderness, No Vertebral Tenderness Extremity: Normal ROM, No Tenderness, No Pedal Edema, No Calf Tenderness Extremity: Bilateral: Atraumatic, Hips Non-Tender, No Pedal Edema, Normal Color And Temperature, Normal ROM, Pelvis-Stable Pulses: Left Radial: Normal, Right Radial: Normal, Left Dorsalis Pedis: Normal, Right Dorsalis Pedis: Normal Neurological/Psych: Oriented x3, Normal Speech, Normal Cognition, Normal Cranial Nerves, No Cerebellar Signs, Normal Motor (5/5 strength in all extremities), No Dysarthria, Other (AOX3) Gait: Steady Other Neurological Findings: No Facial Palsy, No Tongue Deviation Extremity: Right: No Drift, Left: No Drift, Upper: No Drift, Lower: No Drift ED Course And Treatment - Laboratory Results Result Diagrams: 12/01/18 13:43 12/01/18 13:43 O2 Sat by Pulse Oximetry: 100 (RA) Pulse Ox Interpretation: Normal Medical Decision Making Medical Decision Makin78 y/o female,w/PMhx of seizures ( on Keppra), intercranial hemorrhage ( 2 months prior), diabetes, and hypercholesterolemia, presents to the ER complaining of dizziness which began 2 days ago.Patient is also complaining of RUQ, epigastric, and suprapubic abdominal pain which began yesterday. Normal finger to nose on exam. No tongue biting noted or seizure like activity noted. No n/v or dark or bloody stool. No rebound tenderness or guarding. No vaginal d/c or rashes. Pt in NAD. Impression: Worsening ICH vs dehydration/UTI Plan: --Labs --UA --CT-Head --US- RUQ EK, nsr, no stemi 1445 Labs, ua unremarkable CT head stable Xray unremarkable US unremarkable pt notes abdominal pain improved. appreciate consult w/ Dr. Arana: to admit to his service. Pt agreeable to plan. Disposition - Disposition Disposition Time: 14:48 Condition: STABLE - Clinical Impression Clinical Impression: Dizziness - Scribe Statement The provider has reviewed the documentation as recorded by the Kanwal Cerda Provider Attestation: All medical record entries made by the Kanwal were at my direction and personally dictated by me. I have reviewed the chart and agree that the record accurately reflects my personal performance of the history, physical exam, medical decision making, and the department course for this patient. I have also personally directed, reviewed, and agree with the discharge instructions and disposition.
[2018-12-01 13:52] LABS: BASO % 0.3 % (0.0-2.0); EOS # 0.1 K/uL (0.0-0.7); EOS % 1.6 % (0.0-4.0); HEMOGLOBIN 12.5 g/dL (11.0-16.0); LYMPH # 1.9 K/uL (1.0-4.3); LYMPH % 31.4 % (20.0-40.0); MEAN CORPUSCULAR HGB CONC 34.1 g/dL (33.0-37.0); MEAN PLATELET VOLUME 7.6 fL (7.2-11.7); MONO # 0.4 K/uL (0.0-0.8); MONO % 6.4 % (0.0-10.0); NEUT # 3.7 K/uL (1.8-7.0); NEUT % 60.3 % (50.0-75.0); NRBC % 0.1 % (0.0-2.0); RBC 4.18 Mil/uL (3.80-5.20); RED CELL DISTRIBUTION WIDTH 13.3 % (11.5-14.5); WHITE BLOOD COUNT 6.1 K/uL (4.8-10.8)
--- NOTE | 2018-12-01 14:05 | CT ---
Date of service: 12/01/2018 PROCEDURE: CT HEAD WITHOUT CONTRAST. HISTORY: dizzy COMPARISON: 11/23/2018 TECHNIQUE: Axial computed tomography images were obtained through the head/brain without intravenous contrast. Radiation dose: Total exam DLP = 839.33 mGy-cm. This CT exam was performed using one or more of the following dose reduction techniques: Automated exposure control, adjustment of the mA and/or kV according to patient size, and/or use of iterative reconstruction technique. FINDINGS: HEMORRHAGE: No intracranial hemorrhage. BRAIN: No mass effect or edema. No significant atrophy. Mild periventricular white matter lucency consistent with chronic microvascular ischemic change. There is right occipital encephalomalacia unchanged from prior examination, relating to prior focal hemorrhage. No interval change in appearance.. VENTRICLES: Unremarkable. No hydrocephalus. CALVARIUM: Unremarkable. PARANASAL SINUSES: Unremarkable as visualized. No significant inflammatory changes. MASTOID AIR CELLS: Unremarkable as visualized. No inflammatory changes. OTHER FINDINGS: None. IMPRESSION: Stable encephalomalacia right occipital lobe status post focal hemorrhage identified in September of 2018. No acute hemorrhage. No acute infarct. Mild chronic white matter ischemic change.
[2018-12-01] MEDS: Sodium Chloride 0.9% 1,000 ML IV SCH ×2 (14:20→22:22)
--- NOTE | 2018-12-01 14:21 | US ---
Date of service: 12/01/2018 HISTORY: epig pain COMPARISON: None available TECHNIQUE: Sonographic evaluation of the right upper quadrant of the abdomen. FINDINGS: LIVER: Measures 10.6 cm in length and appears unremarkable in shape and echotexture. No focal hepatic mass identified. The main portal vein appears patent with normal directional flow. No intrahepatic bile duct dilatation. GALLBLADDER: Cholecystectomy. COMMON BILE DUCT: Measures 6 mm. PANCREAS: Not well-visualized. RIGHT KIDNEY: Measures approximately 8.1 x 3.7 x 3.7 cm. No obstructing calculus or hydronephrosis. AORTA: Limited visualization appears grossly unremarkable. IVC: Limited visualization appears grossly unremarkable. OTHER FINDINGS: None . IMPRESSION: Cholecystectomy.
[2018-12-01 14:25] LABS: ALB/GLOB RATIO 1.4 (1.0-2.1); ALBUMIN 4.3 g/dL (3.5-5.0); ALT/SGPT 15 U/L (9-52); AST/SGOT 29 U/L (14-36); BLOOD UREA NITROGEN 14 mg/dL (7-17); CALCIUM 9.6 mg/dl (8.6-10.4); GFR NON-AFRICAN AMERICAN > 60
[2018-12-01 14:34] LABS: SQUAMOUS EPITHIAL 1 /hpf (0-5); URINE BILIRUBIN NEGATIVE (NEGATIVE); URINE BLOOD NEGATIVE (NEGATIVE); URINE CLARITY Clear (Clear); URINE COLOR Straw (YELLOW); URINE GLUCOSE (UA) NORMAL (Normal); URINE LEUKOCYTE ESTERASE NEG Leu/uL (Negative); URINE PROTEIN NEGATIVE (NEGATIVE); URINE UROBILINOGEN NORMAL mg/dL (0.2-1.0)
--- NOTE | 2018-12-01 14:40 | RAD ---
Date of service: 12/01/2018 HISTORY: weak / dizzy COMPARISON: 11/03/2018 TECHNIQUE: 1 view obtained. FINDINGS: LUNGS: No active pulmonary disease. PLEURA: No significant pleural effusion identified, no pneumothorax apparent. CARDIOVASCULAR: No aortic atherosclerotic calcification present. Normal cardiac size. No pulmonary vascular congestion. OSSEOUS STRUCTURES: No significant abnormalities. VISUALIZED UPPER ABDOMEN: Normal. OTHER FINDINGS: None. IMPRESSION: No active disease.
[2018-12-01] MEDS ORDERED: Glucagon Recombinant 1 mg Inj IM PRN (17:33)
[2018-12-01] MEDS ORDERED: Dextrose 50% SYRINGE Inj (50 ml) IV PRN (17:33)
[2018-12-01] MEDS: levETIRAcetam 100 mg/ml (5ml) Oral Syringe PO SCH (20:17)
[2018-12-01] MEDS: (Novolog) Insulin Aspart, Recombinant 100 u/ml 10 ml vial SC SCH (22:14)
[2018-12-01] MEDS: (Lantus) Insulin Glargine, Recombinant SC SCH (22:24)
[2018-12-02] MEDS: (Novolog) Insulin Aspart, Recombinant 100 u/ml 10 ml vial SC SCH ×4 (08:55→21:41)
[2018-12-02] MEDS: levETIRAcetam 100 mg/ml (5ml) Oral Syringe PO SCH ×2 (09:46→18:09)
--- NOTE | 2018-12-02 09:59 | CP.PCM.CON ---
<Stevie Quiles - Last Filed: 12/02/18 16:50> History of Present Illness - History of Present Illness History of Present Illness: PGY-1 Neurology consult note for Dr Reed Patient is a 78 year old female with pmhx of seizure, ICH (september 2018), DM, depression, neurology consulted for dizziness. As per patient and sister who is at bedside, patient has been experiencing dizziness since 2 days ago, noticed after having physical therapy at an outpatient center, patient has been also experiencing headaches along with dizziness, and bilateral lower extremity weakness, mostly on the right knee area, states it is of chronic nature. Patient denies any LOC, trauma to the head or other body areas, falls, denies recent convulsions/seizures. Patient has had dizziness since two years ago. Patient was admitted for left arm discomfort and pain on 10/08/2018, on imaging patient was diagnosed with SAH Rt occipital area. Patient had a repeat MRI with evolving small subarachnoid rt post frontal and temporal and subacute hematoma rt occipital lobe. Previous CTA shows no evidence of endoluminal thrombus,occlusion stenosis IC arteries, 65% stenosis in the left proximal ICA. Patient currently admits to mild headaches, denies dizziness, weakness, fever, chills, chest pain, sob, n/v/d/c or urinary incontinence. denies vision or hearing changes, denies aura. 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 Famhx: Heart disease (mother and father), Stroke ( brother) Meds: Janumet, crestor, keppra, insulin Review of Systems - Review of Systems All systems: reviewed and no additional remarkable complaints except Review of Systems: stated in HPI Past Patient History - Past Social History Smoking Status: Never Smoked - CARDIAC Hx Hypercholesterolemia: Yes - PULMONARY Hx Respiratory Disorders: No - NEUROLOGICAL Hx Seizures: Yes Hx Transient Ischemic Attacks (TIA): No - HEENT Hx HEENT Problems: No - RENAL Hx Chronic Kidney Disease: No - ENDOCRINE/METABOLIC Hx Diabetes Mellitus Type 2: Yes - HEMATOLOGICAL/ONCOLOGICAL Hx Blood Disorders: No - INTEGUMENTARY Hx Dermatological Problems: Yes Other/Comment: skin rashes on chest, lef arm and left upper back. - MUSCULOSKELETAL/RHEUMATOLOGICAL Hx Falls: No - GASTROINTESTINAL Hx Gastrointestinal Disorders: No - GENITOURINARY/GYNECOLOGICAL Hx Genitourinary Disorders: No - PSYCHIATRIC Hx Substance Use: No - SURGICAL HISTORY Hx Appendectomy: Yes - ANESTHESIA Hx Anesthesia: No Hx Anesthesia Reactions: No Hx Malignant Hyperthermia: No Meds Allergies/Adverse Reactions: Allergies Allergy/AdvReac Type Severity Reaction Status Date / Time No Known Allergies Allergy Verified 12/01/18 13:28 - Medications Medications: Current Medications Dextrose (Dextrose 50% Inj) 0 ml IV STAT PRN; Protocol PRN Reason: Hypoglycemia Protocol Dextrose (Glutose 15) 0 gm PO ONCE PRN; Protocol PRN Reason: Hypoglycemia Protocol Famotidine (Pepcid) 20 mg PO DAILY [facility] Last Admin: 12/02/18 09:45 Dose: 20 mg Glucagon (Glucagen Diagnostic Kit) 0 mg IM STAT PRN; Protocol PRN Reason: Hypoglycemia Protocol Sodium Chloride (Sodium Chloride 0.9%) 1,000 mls @ 70 mls/hr IV .[id number] [facility] Last Admin: 12/01/18 22:22 Dose: 70 mls/hr Dextrose (Dextrose 5% In Water 1000 Ml) 1,000 mls @ 0 mls/hr IV .Q0M PRN; Protocol PRN Reason: Hypoglycemia Protocol Insulin Aspart (Novolog) 0 unit SC [facility]; Protocol Last Admin: 12/02/18 08:55 Dose: Not Given Insulin Glargine (Lantus) 8 unit SC [facility] Last Admin: 12/01/18 22:24 Dose: 8 units Levetiracetam (Keppra) 750 mg PO BID [facility] Last Admin: 12/02/18 09:46 Dose: 750 mg [facility] ([facility] Last Admin: 12/02/18 08:59 Dose: Not Given Pneumococcal Polyvalent Vaccine (Pneumovax 23 Vaccine) 0.5 ml IM .ONCE ONE Stop: 12/04/18 10:01 Rosuvastatin Calcium (Crestor) 10 mg PO [facility] Last Admin: 12/01/18 22:24 Dose: 10 mg Sitagliptin Phosphate (Januvia) 50 mg PO DAILY [facility] Last Admin: 12/02/18 09:45 Dose: 50 mg Physical Exam - Constitutional Appears: Non-toxic, No Acute Distress - Head Exam Head Exam: ATRAUMATIC, NORMAL INSPECTION, NORMOCEPHALIC - Eye Exam Eye Exam: EOMI, Normal appearance, PERRL Pupil Exam: NORMAL ACCOMODATION - ENT Exam ENT Exam: Mucous Membranes Moist, Normal Exam - Respiratory Exam Respiratory Exam: NORMAL BREATHING PATTERN - Cardiovascular Exam Cardiovascular Exam: REGULAR RHYTHM, +S1, +S2 - Neurological Exam Neurological exam: Alert, CN II-XII Intact, Reflexes Normal - Expanded Neurological Exam Expanded Patient oriented to: person, place Speech: Fluid Speech Cranial nerves: EOM's Intact: Normal, Facial Palsey w/Forehead Movement: Normal, Facial Palsey w/o Forehead Movement: Normal, Facial Sensation: Normal, Nystagmus: Normal, Tongue Deviation: Normal Cerebellar Function: Finger to Nose: Normal, Romberg: Normal Upper motor neuron: Pronator Drift: Normal Sensory exam: Lower Extremity Light Touch: Normal, Upper Extremity Light Touch: Normal Neuro motor strength exam: Left Upper Extremity: 5, Right Upper Extremity: 5, Left Lower Extremity: 5, Right Lower Extremity: 5 DTR: Patellar Left: 2+, Patellar Right: 2+ Coma Scale Eye Opening: SPONTANEOUS Coma Scale Motor Response: OBEYS COMMANDS Coma Scale Verbal: Oriented Coma Scale Total: 15 - Psychiatric Exam Psychiatric exam: Normal Affect, Normal Mood Results - Vital Signs Recent Vital Signs: Last Vital Signs Temp 97.7 F 12/02/18 07:00 Pulse 76 12/02/18 07:00 Resp 18 12/02/18 07:00 BP 100/58 L 12/02/18 07:00 Pulse Ox 96 12/02/18 07:00 - Labs Result Diagrams: 12/01/18 13:43 12/01/18 13:43 Labs: Laboratory Results - last 24 hr 12/01/18 12/01/18 12/01/18 13:43 13:43 14:25 WBC 6.1 RBC 4.18 Hgb 12.5 Hct 36.8 MCV 88.0 MCH 30.0 MCHC 34.1 RDW 13.3 Plt Count 198 MPV 7.6 Neut % (Auto) 60.3 Lymph % (Auto) 31.4 [place] % (Auto) 6.4 Eos % (Auto) 1.6 Baso % (Auto) 0.3 Neut # (Auto) 3.7 Lymph # (Auto) 1.9 [place] # (Auto) 0.4 Eos # (Auto) 0.1 Baso # (Auto) 0.0 Sodium 142 Potassium 5.1 Chloride 100 Carbon Dioxide 27 Anion Gap 19 BUN 14 Creatinine 0.6 L Est GFR ( Amer) > 60 Est GFR (Non-Af Amer) > 60 POC Glucose (mg/dL) Random Glucose 141 H Calcium 9.6 Total Bilirubin 0.5 AST 29 ALT 15 Alkaline Phosphatase 65 Troponin I < 0.0120 Total Protein 7.5 Albumin 4.3 Globulin 3.2 Albumin/Globulin Ratio 1.4 Urine Color Straw Urine Clarity Clear Urine pH 6.0 Ur Specific [place] 1.005 Urine Protein Negative Urine Glucose (UA) Normal Urine Ketones Negative Urine Blood Negative Urine Nitrate Negative Urine Bilirubin Negative Urine Urobilinogen Normal Ur Leukocyte Esterase Neg Urine WBC (Auto) < 1 Urine RBC (Auto) < 1 Ur Squamous Epith Cells 1 12/01/18 12/01/18 12/01/18 17:51 19:39 21:55 WBC RBC Hgb Hct MCV MCH MCHC RDW Plt Count MPV Neut % (Auto) Lymph % (Auto) [place] % (Auto) Eos % (Auto) Baso % (Auto) Neut # (Auto) Lymph # (Auto) [place] # (Auto) Eos # (Auto) Baso # (Auto) Sodium Potassium Chloride Carbon Dioxide Anion Gap BUN Creatinine Est GFR ( Amer) Est GFR (Non-Af Amer) POC Glucose (mg/dL) 114 H 139 H 175 H Random Glucose Calcium Total Bilirubin AST ALT Alkaline Phosphatase Troponin I Total Protein Albumin Globulin Albumin/Globulin Ratio Urine Color Urine Clarity Urine pH Ur Specific [place] Urine Protein Urine Glucose (UA) Urine Ketones Urine Blood Urine Nitrate Urine Bilirubin Urine Urobilinogen Ur Leukocyte Esterase Urine WBC (Auto) Urine RBC (Auto) Ur Squamous Epith Cells 12/02/18 06:12 WBC RBC Hgb Hct MCV MCH MCHC RDW Plt Count MPV Neut % (Auto) Lymph % (Auto) [place] % (Auto) Eos % (Auto) Baso % (Auto) Neut # (Auto) Lymph # (Auto) [place] # (Auto) Eos # (Auto) Baso # (Auto) Sodium Potassium Chloride Carbon Dioxide Anion Gap BUN Creatinine Est GFR ( Amer) Est GFR (Non-Af Amer) POC Glucose (mg/dL) 73 Random Glucose Calcium Total Bilirubin AST ALT Alkaline Phosphatase Troponin I Total Protein Albumin Globulin Albumin/Globulin Ratio Urine Color Urine Clarity Urine pH Ur Specific [place] Urine Protein Urine Glucose (UA) Urine Ketones Urine Blood Urine Nitrate Urine Bilirubin Urine Urobilinogen Ur Leukocyte Esterase Urine WBC (Auto) Urine RBC (Auto) Ur Squamous Epith Cells Assessment & Plan - Assessment and Plan (Free Text) Plan: Patient is 78 year old female with pmhx of ICH/SAH, seizures, DM, Hypercholesterolemia with dizziness, recent CT shows Stable encephalomalacia right occipital lobe status post focal hemorrhage identified in September of 2018. No acute hemorrhage. No acute infarct. Mild chronic white matter ischemic change. 1. CTA head and neck 2. ESR and CRP ordered 3. continue keppra 750 mg PO BID 4. continue medical management Plan discuss with Dr Derek Quiles, PGY-1 - Date & Time Date: 12/02/18 Time: 10:00 <Steven Reed - Last Filed: 12/05/18 16:41> Meds - Medications Medications: Current Medications Dextrose (Dextrose 50% Inj) 0 ml IV STAT PRN; Protocol PRN Reason: Hypoglycemia Protocol Dextrose (Glutose 15) 0 gm PO ONCE PRN; Protocol PRN Reason: Hypoglycemia Protocol Divalproex Sodium (Depakote Dr) 500 mg PO BID [facility] Famotidine (Pepcid) 20 mg PO DAILY [facility] Last Admin: 12/05/18 11:37 Dose: 20 mg Glucagon (Glucagen Diagnostic Kit) 0 mg IM STAT PRN; Protocol PRN Reason: Hypoglycemia Protocol Insulin Aspart (Novolog) 0 unit SC [facility]; Protocol Last Admin: 12/05/18 12:27 Dose: 2 u Insulin Glargine (Lantus) 8 unit SC [facility] Last Admin: 12/04/18 21:58 Dose: 8 units Metformin HCl ([facility]r) [facility] Last Admin: 12/05/18 08:55 Dose: 1,000 mg Rosuvastatin Calcium (Crestor) 10 mg PO HS [facility] Last Admin: 12/04/18 21:13 Dose: 10 mg Sitagliptin Phosphate (Januvia) 50 mg PO DAILY [facility] Last Admin: 12/05/18 11:37 Dose: 50 mg Zolpidem Tartrate (Ambien) 5 mg PO HS PRN PRN Reason: Insomnia Last Admin: 12/04/18 21:14 Dose: 5 mg Results - Vital Signs Recent Vital Signs: Last Vital Signs Temp 98.6 F 12/05/18 16:00 Pulse 82 12/05/18 16:00 Resp 20 12/05/18 16:00 BP 115/66 12/05/18 16:00 Pulse Ox 98 12/05/18 16:00 - Labs Result Diagrams: 12/01/18 13:43 12/01/18 13:43 Labs: Laboratory Results - last 24 hr 12/01/18 12/04/18 12/04/18 13:30 06:22 16:37 POC Glucose (mg/dL) 161 H 126 H 220 H 12/04/18 12/05/18 12/05/18 21:40 12:05 16:01 POC Glucose (mg/dL) 196 H 235 H 226 H Assessment & Plan - Assessment and Plan (Free Text) Plan: All medical record entries made by the REsident were at my direction and personally dictated by me. I have reviewed the chart and agree that the record accurately reflects my personal performance of the history, physical exam, medical decision making, and the department course for this patient. I have also personally directed, reviewed, and agree with the discharge instructions and disposition. 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 She has chronic dizziness, with stable right occipital old hemorrhagic focus. SHe is stable to go home. Dr. Reed Neurology
--- NOTE | 2018-12-02 14:36 | CARD ---
APPROVED REPORT Date of service: 12/01/2018 EKG Measurement Heart [id number] <Conclusion> Normal sinus rhythm Normal ECG
[2018-12-02] MEDS: Sodium Chloride 0.9% 1,000 ML IV SCH ×2 (18:30→21:39)
[2018-12-02] MEDS ORDERED: Iodixanol 320 MG/ML 100 ML BOTTLE IV ONE (19:23)
[2018-12-02] MEDS: (Lantus) Insulin Glargine, Recombinant SC SCH (21:41)
[2018-12-03] MEDS: (Novolog) Insulin Aspart, Recombinant 100 u/ml 10 ml vial SC SCH ×4 (07:26→22:50)
[2018-12-03] MEDS: levETIRAcetam 100 mg/ml (5ml) Oral Syringe PO SCH ×2 (09:07→18:08)
--- NOTE | 2018-12-03 16:41 | CT ---
Date of service: 12/02/2018 PROCEDURE: CT Angiography of the neck and brain HISTORY: Dizziness,; history of ICH COMPARISON: Comparison made with CT scan brain 12/01/2018. TECHNIQUE: Contiguous axial images of the neck and brain were obtained from the level of the vertex of the skull to the superior mediastinum in the arteriographic phase of enhancement. Coronal and sagittal reformats or also generated. IV contrast dose: 100 cc Visipaque 320 Radiation dose: Total exam DLP = 430.65 mGy-cm. This CT exam was performed using one or more of the following dose reduction techniques: Automated exposure control, adjustment of the mA and/or kV according to patient size, and/or use of iterative reconstruction technique. FINDINGS: The aortic arch is widely patent despite some very minimal calcified atherosclerotic plaque changes. There is a common origin of the right subclavian and left carotid artery. Three-vessel arch. Both common carotid arteries are patent with no evidence of occlusion or dissection or significant stenosis.. There is moderate calcified atherosclerotic plaque changes both carotid bifurcations extending into the proximal margins of both internal carotid arteries. Changes on the left side result in approximately 60-70 % diameter stenosis and on the left less than 40-45 % diameter stenosis. Carotid Doppler could confirm. The distal internal carotid arteries including the petrous cavernous and supraclinoid segments are patent however note made of calcified atherosclerotic plaque both carotid siphons. The vertebral arteries are patent and symmetric throughout. The visualized major branches of the [id number] and distal cerebral vasculature are patent and relatively symmetric. No evidence of large aneurysm nor vascular malformation. OTHER FINDINGS: None IMPRESSION: Partially calcified atherosclerotic plaque both carotid bifurcations and proximal internal carotid arteries with narrowing on the right-side estimated approximately 60-70 % and on the left 40-45 %. No evidence of occlusion of the intra cerebral vasculature. No evidence of large aneurysm nor vascular malformation. Carotid Doppler follow-up could be performed to confirm
[2018-12-03] MEDS: (Lantus) Insulin Glargine, Recombinant SC SCH (22:50)
[2018-12-03] MEDS: Sodium Chloride 0.9% 1,000 ML IV SCH (23:28)
--- NOTE | 2018-12-04 06:04 | CP.PCM.HP ---
Present on Admission - Present on Admission Any Indicators Present on Admission: No Past Patient History - Past Social History Smoking Status: Never Smoked - CARDIAC Hx Hypercholesterolemia: Yes - PULMONARY Hx Respiratory Disorders: No - NEUROLOGICAL Hx Seizures: Yes Hx Transient Ischemic Attacks (TIA): No - HEENT Hx HEENT Problems: No - RENAL Hx Chronic Kidney Disease: No - ENDOCRINE/METABOLIC Hx Diabetes Mellitus Type 2: Yes - HEMATOLOGICAL/ONCOLOGICAL Hx Blood Disorders: No - INTEGUMENTARY Hx Dermatological Problems: Yes Other/Comment: skin rashes on chest, lef arm and left upper back. - MUSCULOSKELETAL/RHEUMATOLOGICAL Hx Falls: No - GASTROINTESTINAL Hx Gastrointestinal Disorders: No - GENITOURINARY/GYNECOLOGICAL Hx Genitourinary Disorders: No - PSYCHIATRIC Hx Substance Use: No - SURGICAL HISTORY Hx Appendectomy: Yes - ANESTHESIA Hx Anesthesia: No Hx Anesthesia Reactions: No Hx Malignant Hyperthermia: No Meds Allergies/Adverse Reactions: Allergies Allergy/AdvReac Type Severity Reaction Status Date / Time No Known Allergies Allergy Verified 12/01/18 13:28 Results - Vital Signs Recent Vital Signs: Last Vital Signs Temp 97.9 F 12/03/18 23:00 Pulse 77 12/04/18 04:00 Resp 20 12/03/18 23:00 BP 114/61 12/03/18 23:00 Pulse Ox 100 12/03/18 23:00 - Labs Result Diagrams: 12/01/18 13:43 12/01/18 13:43 Labs: Laboratory Results - last 24 hr 12/02/18 12/02/18 12/03/18 16:15 21:14 06:35 ESR 5 POC Glucose (mg/dL) 206 H 167 H C-Reactive Protein 12/03/18 12/03/18 12/03/18 06:35 07:22 11:35 ESR POC Glucose (mg/dL) 114 H 185 H C-Reactive Protein < 5.00 12/03/18 12/03/18 16:37 21:12 ESR POC Glucose (mg/dL) 262 H 243 H C-Reactive Protein
[2018-12-04] MEDS: (Novolog) Insulin Aspart, Recombinant 100 u/ml 10 ml vial SC SCH ×4 (07:48→22:00)
[2018-12-04] MEDS: levETIRAcetam 100 mg/ml (5ml) Oral Syringe PO SCH ×2 (09:12→17:58)
[2018-12-04] MEDS ORDERED: Pneumococcal 23-Valent Vaccine IM ONE (10:00)
[2018-12-04] MEDS: Sodium Chloride 0.9% 1,000 ML IV SCH (12:16)
--- NOTE | 2018-12-04 13:30 | CP.PCM.PN ---
Subjective - Date & Time of Evaluation Date of Evaluation: 12/04/18 Time of Evaluation: 07:40 - Subjective Subjective: dict Objective - Vital Signs/Intake and Output Vital Signs (last 24 hours): Temp Pulse Resp BP Pulse Ox 97.9 F 75 20 114/61 100 12/03/18 23:00 12/04/18 08:43 12/03/18 23:00 12/03/18 23:00 12/03/18 23:00 Intake and Output: 12/04/18 12/04/18 06:59 18:59 Intake Total 1570 Output Total 300 Balance 1270 - Medications Medications: Current Medications Dextrose (Dextrose 50% Inj) 0 ml IV STAT PRN; Protocol PRN Reason: Hypoglycemia Protocol Dextrose (Glutose 15) 0 gm PO ONCE PRN; Protocol PRN Reason: Hypoglycemia Protocol Famotidine (Pepcid) 20 mg PO DAILY [facility] Last Admin: 12/04/18 09:12 Dose: 20 mg Glucagon (Glucagen Diagnostic Kit) 0 mg IM STAT PRN; Protocol PRN Reason: Hypoglycemia Protocol Sodium Chloride (Sodium Chloride 0.9%) 1,000 mls @ 70 mls/hr IV .[id number] [facility] Last Admin: 12/04/18 12:16 Dose: Not Given Dextrose (Dextrose 5% In Water 1000 Ml) 1,000 mls @ 0 mls/hr IV .Q0M PRN; Protocol PRN Reason: Hypoglycemia Protocol Insulin Aspart (Novolog) 0 unit SC [facility]; Protocol Last Admin: 12/04/18 12:15 Dose: Not Given Insulin Glargine (Lantus) 8 unit SC [facility] Last Admin: 12/03/18 22:50 Dose: 8 units Levetiracetam (Keppra) 750 mg PO BID [facility] Last Admin: 12/04/18 09:12 Dose: 750 mg [facility] Last Admin: 12/04/18 08:11 Dose: 1,000 mg Rosuvastatin Calcium (Crestor) 10 mg PO HS [facility] Last Admin: 12/03/18 22:30 Dose: 10 mg Sitagliptin Phosphate (Januvia) 50 mg PO DAILY [facility] Last Admin: 12/04/18 09:11 Dose: 50 mg - Labs Labs: 12/01/18 13:43 12/01/18 13:43
--- NOTE | 2018-12-04 20:21 | PN ---
DATE: 12/04/2018 SUBJECTIVE: The patient is feeling better. She is till dizzy. No chest pain. CT angio shows extensive atherosclerosis in the cranial arteries including intracerebral arteries with multiple degrees of . PHYSICAL EXAMINATION: VITAL SIGNS: Blood pressure 114/60, pulse 77, respiratory rate 20, and temperature 97.9. LUNGS: Clear. No rales. No rhonchi. CARDIOVASCULAR: No heave. No thrill. S1 and S2, regular. ABDOMEN: Soft and nontender. Bowel sounds are positive. ASSESSMENT: 1. Dizziness, most likely due to cerebral atherosclerosis. No intracerebral bleed. No bleeding aneurysm. No major aneurysm on CT angio. 2. Hypertension. 3. Hyperlipidemia. 4. Diabetes. PLAN: Admit. Detailed orders are written. Seen and examined. Jose Arana MD
[2018-12-04] MEDS: (Lantus) Insulin Glargine, Recombinant SC SCH (21:58)
--- NOTE | 2018-12-05 01:09 | HP ---
CHIEF COMPLAINT: Dizziness. HISTORY OF PRESENT ILLNESS: This is a 78-year-old female with history of intracranial hemorrhage two months ago; she is on Keppra, diabetes, hypertension, hyperlipidemia. She is compliant with her diet, medication, and followup. When she had previous hospitalization recently like a month ago, two days ago she started having dizziness, which she describes as a lightheaded feeling and feeling of imbalance. According to the patient, she has been on physiotherapy since discharge, and according to her, she started with headache first and then she started getting dizzy which she describes as a spinning and off-balance situation. It is worse with movement. The patient is complaining of upper abdominal pain, right upper quadrant pain, epigastric pain, and suprapubic abdominal pain. The patient describes pain as throbbing, along with that the patient has diffuse weakness and the patient has unilateral weakness, slurring speech, fever, chills, neck stiffness, chest pain, shortness of breath, nausea, vomiting. The patient denies any history of polyuria, polydipsia. Denies any history of hematuria, pyuria. Denies any history of sneezing, itchy eyes, itchy nose. There is no history of cough, sore throat, runny nose. There is no history of any head injury, fall, loss of consciousness. No history of seizure like activities. No cough, no sore throat, no running nose, no itchy eyes, itchy nose. PAST MEDICAL HISTORY: Hypertension, hyperlipidemia, and intracerebral hemorrhage. SOCIAL HISTORY: Nonsmoker, non-EtOH user. CURRENT MEDICATIONS: She is taking at home Keppra, Crestor, Janumet, and Basaglar. PHYSICAL EXAMINATION: GENERAL: An elderly female. She is not in any acute cardiopulmonary distress. VITAL SIGNS: Blood pressure 123/72, pulse 78, respiratory rate 20, and temperature 98.5. SKIN: Senile turgor. No bruises. No purpura. No petechiae. No ecchymosis. HEENT: Atraumatic and normocephalic. Negative pallor. Negative jaundice. Extraocular movements are intact. NECK: Supple. No JVD. No lymph node. No thyromegaly. No carotid bruit. CHEST WALL: Bilateral symmetrical expansion. No tenderness. No deformity. LUNGS: Bilaterally clear. No rales. No rhonchi. CARDIOVASCULAR SYSTEM: S1 and S2. Regular. No heave. No thrill. ABDOMEN: Soft and nontender. Bowel sounds are positive. EXTREMITIES: No clubbing, cyanosis, or edema. CENTRAL NERVOUS SYSTEM: Awake, alert, and oriented x3. Cranial nerves II through XII are normal. Power 5/5 x4. Plantars are downgoing. ASSESSMENT: 1. Headache, dizziness. The patient has history of intracerebral bleed. Rule out recurrence of intracerebral bleed. The patient also has extensive atherosclerosis, could be vertebrobasilar insufficiency. 2. Hypertension. 3. Hyperlipidemia. 4. Diabetes. PLAN: Admit. Detailed orders are written. Seen and examined. Jose Arana MD
[2018-12-05] MEDS: (Novolog) Insulin Aspart, Recombinant 100 u/ml 10 ml vial SC SCH ×5 (08:43→21:23)
[2018-12-05] MEDS: levETIRAcetam 100 mg/ml (5ml) Oral Syringe PO SCH (11:36)
[2018-12-05 14:07] VITALS: RESP 20
--- NOTE | 2018-12-05 15:06 | CP.PCM.PN ---
Subjective - Date & Time of Evaluation Date of Evaluation: 12/05/18 Time of Evaluation: 14:56 - Subjective Subjective: Neuro Follow Up: Mrs. Clark was evaluated this afternoon at bedside with sister present. This pt is known to our neuro group. Pt is longer complaining of dizziness. She does verbalize to me feeling depressed. Sister also verbalizes concerns that over the past 2-3 weeks the pt is increasingly confused, does not sleep, and has been wandering out of the house (she lives in the home with family). Pt was last seen by Dr. Bravo in the office about 2.5 weeks ago. I discussed these concerns with him, the pt, and the pt's sister. Otherwise, the pt denies h/a, dizziness, visual changes, chest pain, sob, abd pain, paresthesias, fever/chills. Objective - Vital Signs/Intake and Output Vital Signs (last 24 hours): Temp Pulse Resp BP Pulse Ox 98.1 F 80 20 117/65 99 12/05/18 14:04 12/05/18 14:04 12/05/18 14:04 12/05/18 14:04 12/05/18 14:04 Intake and Output: 12/05/18 12/05/18 06:59 18:59 Intake Total 1220 Balance 1220 - Medications Medications: Current Medications Dextrose (Dextrose 50% Inj) 0 ml IV STAT PRN; Protocol PRN Reason: Hypoglycemia Protocol Dextrose (Glutose 15) 0 gm PO ONCE PRN; Protocol PRN Reason: Hypoglycemia Protocol Famotidine (Pepcid) 20 mg PO DAILY [facility] Last Admin: 12/05/18 11:37 Dose: 20 mg Glucagon (Glucagen Diagnostic Kit) 0 mg IM STAT PRN; Protocol PRN Reason: Hypoglycemia Protocol Insulin Aspart (Novolog) 0 unit SC [facility]; Protocol Last Admin: 12/05/18 12:27 Dose: 2 u Insulin Glargine (Lantus) 8 unit SC [facility] Last Admin: 12/04/18 21:58 Dose: 8 units Levetiracetam (Keppra) 500 mg PO BID [facility] Metformin HCl (Glucophage Xr) 1,000 mg PO [facility] Last Admin: 12/05/18 08:55 Dose: 1,000 mg Rosuvastatin Calcium (Crestor) 10 mg PO HS [facility] Last Admin: 12/04/18 21:13 Dose: 10 mg Sitagliptin Phosphate (Januvia) 50 mg PO DAILY [facility] Last Admin: 12/05/18 11:37 Dose: 50 mg Zolpidem Tartrate (Ambien) 5 mg PO HS PRN PRN Reason: Insomnia Last Admin: 12/04/18 21:14 Dose: 5 mg - Labs Labs: 12/01/18 13:43 12/01/18 13:43 - Constitutional Appears: Well, Non-toxic, No Acute Distress - Head Exam Head Exam: ATRAUMATIC, NORMAL INSPECTION, NORMOCEPHALIC - Eye Exam Eye Exam: EOMI, Normal appearance, PERRL Pupil Exam: NORMAL ACCOMODATION, PERRL - ENT Exam ENT Exam: Mucous Membranes Moist, Normal Exam - Neck Exam Neck Exam: Full ROM, Normal Inspection - Respiratory Exam Respiratory Exam: NORMAL BREATHING PATTERN - Extremities Exam Extremities Exam: Full ROM. absent: Calf Tenderness, Pedal Edema - Back Exam Back Exam: Full ROM, NORMAL INSPECTION - Neurological Exam Neurological Exam: Alert, Awake, CN II-XII Intact, Reflexes Normal. absent: Oriented x3 Neuro motor strength exam: Left Upper Extremity: 5, Right Upper Extremity: 5, Left Lower Extremity: 5, Right Lower Extremity: 5 Additional comments: Disoriented to time; knows she is in the hospital and can identify her sister at bedside. Speech is clear and fluid. FROM to all extremities; strength 5/5 throughout; no motor or sensory deficits noted. No tremors or abnormal movements. - Psychiatric Exam Psychiatric exam: Depressed - Skin Skin Exam: Dry, Intact, Normal Color Assessment and Plan (1) Dizziness Assessment & Plan: Imaging reviewed: -CTA Head and Neck (12/02/18): Partially calcified atherosclerotic plaque both carotid bifurcations and proximal internal carotid arteries with narrowing on the right-side estimated approximately 60-70 % and on the left 40-45 %. No evidence of occlusion of the intra cerebral vasculature. No evidence of large aneurysm nor vascular malformation. -CT Head (12/01/18): Stable encephalomalacia right occipital lobe status post foc al hemorrhage identified in September of 2018. No acute hemorrhage. No acute infarct. Mild chronic white matter ischemic change. -Pt's dizziness has resolved, however, based on the CTA results and the pt's h/o ICH, we will have her evaluated by the neuro interventional team. I have already notified the neuro IR [employer] TEST TECHNICIAN regarding the consult. -For the pt's increasing forgetfulness and depression, and for seizure coverage as well, we will d/c Keppra and start Depakote 500 mg PO BID. -We will consider adding Seroquel 25 mg PO QHS after trial of Depakote. -Please notify neuro of any acute changes in pt's condition. Laura Valdes DNP, [employer] TEST TECHNICIAN d/w Dr. Bravo Status: Acute
--- NOTE | 2018-12-05 15:41 | CP.PCM.CON ---
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 On 11/30 pt was at PT began to c/o of dizziness per sister at pts bedside. The dizziness continued with c/o addition of intermittent forehead headache to ED 12/02/18. CT head w/o stable encephalomalacia right occipital lobe s/p hemorrhage; no acute hemorrhage; no acute infarct. CTA head and neck atherosclerotic plaque both carotid bifurcations and proximal ICA narrowing right side estimated 60-70%; Left 40- 45%. No evidence of occlusion intracerebral vasulature, large aneurysm, nor vascular malformation. Review of Systems - Review of Systems Systems not reviewed;Unavailable: Altered Mental Status - Constitutional Constitutional: Headache (intermittent via forehead) Past Patient History - Past Social History Smoking Status: Never Smoked Chewing Tobacco Use: No Cigar Use: No Alcohol: None Home Situation {Lives}: With Family - CARDIAC Hx Hypercholesterolemia: Yes - PULMONARY Hx Respiratory Disorders: No - NEUROLOGICAL HX Cerebrovascular Accident: Yes Hx Dizziness: Yes Hx Seizures: Yes Hx Transient Ischemic Attacks (TIA): No - HEENT Hx HEENT Problems: No - RENAL Hx Chronic Kidney Disease: No - ENDOCRINE/METABOLIC Hx Diabetes Mellitus Type 2: Yes - HEMATOLOGICAL/ONCOLOGICAL Hx Blood Disorders: No - INTEGUMENTARY Hx Dermatological Problems: Yes Other/Comment: skin rashes on chest, lef arm and left upper back. - MUSCULOSKELETAL/RHEUMATOLOGICAL Hx Falls: No - GASTROINTESTINAL Hx Gastrointestinal Disorders: No - GENITOURINARY/GYNECOLOGICAL Hx Genitourinary Disorders: No - PSYCHIATRIC Hx Depression: Yes (sister states pt verbalized not wanting to live ) Hx Substance Use: No - SURGICAL HISTORY Hx Appendectomy: Yes - ANESTHESIA Hx Anesthesia: Yes Hx Anesthesia Reactions: No Hx Malignant Hyperthermia: No Meds Home Medications: Home Medication List Medication Instructions Recorded Confirmed Type Divalproex [Depakote DR(*BID*)] 500 mg PO BID #60 tcp 12/06/18 Rx Allergies/Adverse Reactions: Allergies Allergy/AdvReac Type Severity Reaction Status Date / Time No Known Allergies Allergy Verified 12/01/18 13:28 - Medications Medications: Current Medications Dextrose (Dextrose 50% Inj) 0 ml IV STAT PRN; Protocol PRN Reason: Hypoglycemia Protocol Dextrose (Glutose 15) 0 gm PO ONCE PRN; Protocol PRN Reason: Hypoglycemia Protocol Divalproex Sodium (Depakote Dr) 500 mg PO BID [facility] Famotidine (Pepcid) 20 mg PO DAILY [facility] Last Admin: 12/05/18 11:37 Dose: 20 mg Glucagon (Glucagen Diagnostic Kit) 0 mg IM STAT PRN; Protocol PRN Reason: Hypoglycemia Protocol Insulin Aspart (Novolog) 0 unit SC [facility]; Protocol Last Admin: 12/05/18 12:27 Dose: 2 u Insulin Glargine (Lantus) 8 unit SC [facility] Last Admin: 12/04/18 21:58 Dose: 8 units [facility] Last Admin: 12/05/18 08:55 Dose: 1,000 mg Rosuvastatin Calcium (Crestor) 10 mg PO [facility] Last Admin: 12/04/18 21:13 Dose: 10 mg Sitagliptin Phosphate (Januvia) 50 mg PO DAILY [facility] Last Admin: 12/05/18 11:37 Dose: 50 mg Zolpidem Tartrate (Ambien) 5 mg PO HS PRN PRN Reason: Insomnia Last Admin: 12/04/18 21:14 Dose: 5 mg Physical Exam - Head Exam Head Exam: ATRAUMATIC - Eye Exam Eye Exam: EOMI, Normal appearance, PERRL Pupil Exam: NORMAL ACCOMODATION - Neck Exam Neck exam: Positive for: Full Rom - Respiratory Exam Respiratory Exam: NORMAL BREATHING PATTERN - Rectal Exam Rectal Exam: Deferred - Extremities Exam Extremities exam: Positive for: normal inspection - Neurological Exam Neurological exam: Alert, CN II-XII Intact - Skin Skin Exam: Dry, Intact, Normal Color, Warm Results - Vital Signs Recent Vital Signs: Last Vital Signs Temp 98.1 F 12/05/18 14:04 Pulse 80 12/05/18 14:04 Resp 20 12/05/18 14:04 BP 117/65 12/05/18 14:04 Pulse Ox 99 12/05/18 14:04 - Labs Result Diagrams: 12/01/18 13:43 12/01/18 13:43 Labs: Laboratory Results - last 24 hr 12/01/18 12/04/18 12/04/18 13:30 06:22 16:37 POC Glucose (mg/dL) 161 H 126 H 220 H 12/04/18 12/05/18 21:40 12:05 POC Glucose (mg/dL) 196 H 235 H Assessment & Plan - Assessment and Plan (Free Text) Assessment: NEUROLOGICAL ASSESSMENT: General: awake, sitting on side of bed, alert to person and place not time Mental Status: alert and oriented to person and place, follows commands, regards on both sides Speech: no dysarthria, speech fluent Cranial Nerves: PERRL, BTT bilaterally, EOMI, no facial asymmetry, tongue midline Motor: 5/5 left and right upper and lower extremities Sensory: intact bilaterally Coordination: [id number] no dysmetria Gait: deferred 78 year old female s/p ICH September 2018 presents with dizziness over 4 days and c/o headache. Chronic hemorrhage cavity right. No significant degree of stenosis via left or right ICA. Differencial diagnosis: 1-stroke revascularization Plan: 1- Agree with follow-up as out patient 2- Would repeat MRI brain with and w/o contrast 3- Consider DCA as out patient after MRI Thank-you for including us in the patients care. 35 min spent with patient and family, assessment,discussion of plan and documentation
[2018-12-05] MEDS: Divalproex 500 mg DR Tab PO SCH (18:24)
[2018-12-05] MEDS: (Lantus) Insulin Glargine, Recombinant SC SCH (21:22)
--- NOTE | 2018-12-06 03:57 | CP.PCM.PN ---
Subjective - Date & Time of Evaluation Date of Evaluation: 12/05/18 Time of Evaluation: 08:20 - Subjective Subjective: dict Objective - Vital Signs/Intake and Output Vital Signs (last 24 hours): Temp Pulse Resp BP Pulse Ox 98.1 F 72 20 107/71 99 12/05/18 23:19 12/05/18 23:19 12/05/18 23:19 12/05/18 23:19 12/05/18 23:19 Intake and Output: 12/05/18 12/06/18 18:59 06:59 Intake Total 400 Balance 400 - Medications Medications: Current Medications Dextrose (Dextrose 50% Inj) 0 ml IV STAT PRN; Protocol PRN Reason: Hypoglycemia Protocol Dextrose (Glutose 15) 0 gm PO ONCE PRN; Protocol PRN Reason: Hypoglycemia Protocol Divalproex Sodium (Depakote Dr) 500 mg PO BID [facility] Last Admin: 12/05/18 18:24 Dose: 500 mg Famotidine (Pepcid) 20 mg PO DAILY [facility] Last Admin: 12/05/18 11:37 Dose: 20 mg Glucagon (Glucagen Diagnostic Kit) 0 mg IM STAT PRN; Protocol PRN Reason: Hypoglycemia Protocol Insulin Aspart (Novolog) 0 unit SC [facility]; Protocol Last Admin: 12/05/18 21:23 Dose: Not Given Insulin Glargine (Lantus) 8 unit SC [facility] Last Admin: 12/05/18 21:22 Dose: 8 units [facility] ([facility] Last Admin: 12/05/18 18:09 Dose: 1,000 mg Rosuvastatin Calcium (Crestor) 10 mg PO HS [facility] Last Admin: 12/05/18 21:23 Dose: 10 mg Sitagliptin Phosphate (Januvia) 50 mg PO DAILY [facility] Last Admin: 12/05/18 11:37 Dose: 50 mg Zolpidem Tartrate (Ambien) 5 mg PO HS PRN PRN Reason: Insomnia Last Admin: 12/05/18 21:23 Dose: 5 mg - Labs Labs: 12/01/18 13:43 12/01/18 13:43
[2018-12-06 07:28] VITALS: BP 119/62; PULSE 76; TEMP 97.4; O2SAT 96
--- NOTE | 2018-12-06 07:43 | PN ---
DATE: 12/06/2018 SUBJECTIVE: The patient is feeling better. The patient is seen by Neurology. The patient denies any dizziness. She feels much better. She occasionally gets depressed, but she is not suicidal or homicidal. No cough. No shortness of breath. . PHYSICAL EXAMINATION: VITAL SIGNS: Blood pressure 107/71, pulse 72, respiratory rate 20, temperature 98.1. LUNGS: Clear. CARDIOVASCULAR SYSTEM: S1 and S2, regular. ABDOMEN: Soft. ASSESSMENT: 1. Dizziness. 2. History of intracerebral bleed. 3. Hypertension. PLAN: Continue current medication. Monitor patient. Jose Arana MD
[2018-12-06] MEDS: (Novolog) Insulin Aspart, Recombinant 100 u/ml 10 ml vial SC SCH ×2 (07:45→12:16)
[2018-12-06] MEDS: Divalproex 500 mg DR Tab PO SCH (11:14)
--- NOTE | 2018-12-06 13:48 | CP.PCM.PN ---
Subjective - Date & Time of Evaluation Date of Evaluation: 12/06/18 Time of Evaluation: 13:45 - Subjective Subjective: Neuro Follow-Up Note: Mrs. Clark was evaluated this afternoon with sister at bedside. She is for d/c home today. She states that she feels well. Started the Depakote last night with no reactions. Pt admits that she slept well last night. ROS is unremarkable and no further dizziness. Objective - Vital Signs/Intake and Output Vital Signs (last 24 hours): Temp Pulse Resp BP Pulse Ox 97.4 F L 76 20 119/62 96 12/06/18 07:00 12/06/18 07:00 12/06/18 07:00 12/06/18 07:00 12/06/18 07:00 Intake and Output: 12/06/18 12/06/18 06:59 18:59 Intake Total 400 Balance 400 - Medications Medications: Current Medications Dextrose (Dextrose 50% Inj) 0 ml IV STAT PRN; Protocol PRN Reason: Hypoglycemia Protocol Dextrose (Glutose 15) 0 gm PO ONCE PRN; Protocol PRN Reason: Hypoglycemia Protocol Divalproex Sodium (Depakote Dr) 500 mg PO BID [facility] Last Admin: 12/06/18 11:14 Dose: 500 mg Famotidine (Pepcid) 20 mg PO DAILY [facility] Last Admin: 12/06/18 11:11 Dose: 20 mg Glucagon (Glucagen Diagnostic Kit) 0 mg IM STAT PRN; Protocol PRN Reason: Hypoglycemia Protocol Insulin Aspart (Novolog) 0 unit SC [facility]; Protocol Last Admin: 12/06/18 12:16 Dose: 4 u Insulin Glargine (Lantus) 8 unit SC [facility] Last Admin: 12/05/18 21:22 Dose: 8 units Metformin HCl (Glucophage Xr) 1,000 mg PO BIDCC [facility] Last Admin: 12/06/18 10:00 Dose: 1,000 mg Rosuvastatin Calcium (Crestor) 10 mg PO HS [facility] Last Admin: 12/05/18 21:23 Dose: 10 mg Sitagliptin Phosphate (Januvia) 50 mg PO DAILY [facility] Last Admin: 12/06/18 11:12 Dose: 50 mg Zolpidem Tartrate (Ambien) 5 mg PO HS PRN PRN Reason: Insomnia Last Admin: 12/05/18 21:23 Dose: 5 mg - Labs Labs: 12/01/18 13:43 12/01/18 13:43 - Constitutional Appears: Well, Non-toxic, No Acute Distress - Head Exam Head Exam: ATRAUMATIC, NORMAL INSPECTION, NORMOCEPHALIC - Eye Exam Eye Exam: EOMI, Normal appearance, PERRL Pupil Exam: NORMAL ACCOMODATION, PERRL - ENT Exam ENT Exam: Mucous Membranes Moist - Neck Exam Neck Exam: Full ROM, Normal Inspection - Respiratory Exam Respiratory Exam: NORMAL BREATHING PATTERN - Extremities Exam Extremities Exam: Full ROM, Normal Inspection. absent: Calf Tenderness, Pedal Edema - Back Exam Back Exam: Full ROM - Neurological Exam Neurological Exam: Alert, Awake, CN II-XII Intact, Normal Gait, Reflexes Normal. absent: Oriented x3 (not oriented to time) Neuro motor strength exam: Left Upper Extremity: 5, Right Upper Extremity: 5, Left Lower Extremity: 5, Right Lower Extremity: 5 Additional comments: No focal motor or sensory deficits. No tremors or abnormal movements. - Psychiatric Exam Psychiatric exam: Normal Affect - Skin Skin Exam: Dry, Intact, Normal Color Assessment and Plan (1) Dizziness Assessment & Plan: Imaging reviewed: -CTA Head and Neck (12/02/18): Partially calcified atherosclerotic plaque both carotid bifurcations and proximal internal carotid arteries with narrowing on the right-side estimated approximately 60-70 % and on the left 40-45 %. No evidence of occlusion of the intra cerebral vasculature. No evidence of large aneurysm nor vascular malformation. -CT Head (12/01/18): Stable encephalomalacia right occipital lobe status post focal hemorrhage identified in September of 2018. No acute hemorrhage. No acute infarct. Mild chronic white matter ischemic change. -Pierce d/c'd. Pt instructed to stop taking this at home. -Continue Depakote 500 mg PO BID at home---rx sent to pt's pharmacy. -Follow up with Dr. Bravo in the office on 12/27/18 as already scheduled. Call the office for any questions or concerns. -Follow up with Neuro IR as directed by them. Call the office of Dr. Pereyra for any questions or concerns. Thank you for this consultation. Laura Valdes, DNP, GRAFFITI CLEANER d/w Dr. Bravo Status: Acute
--- NOTE | 2018-12-06 21:11 | CP.PCM.DIS ---
Provider - Provider Date of Admission: 12/01/18 14:43 Attending physician: Jose Arana MD Consults: 12/01/18 17:34 Neurology Consult Routine Comment: Consulting Provider: Steven Reed Consulting Physician: Steven Reed Reason for Consult: dizziness / hx of hemmarage 12/01/18 19:57 Social Work Referral Routine Comment: routine Physician Instructions: referral Reason For Exam: shawn score 8 12/05/18 15:03 Physician Consult Routine Comment: Consulting Provider: Ronnie Pereyra Consulting Physician: Ronnie Pereyra Reason for Consult: right ica 60-70% narrowing; dizzy on admission. 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 Thanks. Time Spent in preparation of Discharge (in minutes): 30 Hospital Course - Lab Results Lab Results: Most Recent Lab Values WBC 6.1 K/uL (4.8-10.8) 12/01/18 13:43 RBC 4.18 Mil/uL (3.80-5.20) 12/01/18 13:43 Hgb 12.5 g/dL (11.0-16.0) 12/01/18 13:43 Hct 36.8 % (34.0-47.0) 12/01/18 13:43 MCV 88.0 fL (81.0-99.0) 12/01/18 13:43 MCH 30.0 pg (27.0-31.0) 12/01/18 13:43 MCHC 34.1 g/dL (33.0-37.0) 12/01/18 13:43 RDW 13.3 % (11.5-14.5) 12/01/18 13:43 Plt Count 198 K/uL (130-400) 12/01/18 13:43 MPV 7.6 fL (7.2-11.7) 12/01/18 13:43 Neut % (Auto) 60.3 % (50.0-75.0) 12/01/18 13:43 Lymph % (Auto) 31.4 % (20.0-40.0) 12/01/18 13:43 [place] % (Auto) 6.4 % (0.0-10.0) 12/01/18 13:43 Eos % (Auto) 1.6 % (0.0-4.0) 12/01/18 13:43 Baso % (Auto) 0.3 % (0.0-2.0) 12/01/18 13:43 Neut # (Auto) 3.7 K/uL (1.8-7.0) 12/01/18 13:43 Lymph # (Auto) 1.9 K/uL (1.0-4.3) 12/01/18 13:43 [place] # (Auto) 0.4 K/uL (0.0-0.8) 12/01/18 13:43 Eos # (Auto) 0.1 K/uL (0.0-0.7) 12/01/18 13:43 Baso # (Auto) 0.0 K/uL (0.0-0.2) 12/01/18 13:43 ESR 5 mm/hr (0-20) 12/03/18 06:35 Sodium 142 mmol/L (132-148) 12/01/18 13:43 Potassium 5.1 mmol/L (3.6-5.2) 12/01/18 13:43 Chloride 100 mmol/L (98-107) 12/01/18 13:43 Carbon Dioxide 27 mmol/L (22-30) 12/01/18 13:43 Anion Gap 19 (10-20) 12/01/18 13:43 BUN 14 mg/dL (7-17) 12/01/18 13:43 Creatinine 0.6 mg/dL (0.7-1.2) L 12/01/18 13:43 Est GFR ( Amer) > 60 12/01/18 13:43 Est GFR (Non-Af Amer) > 60 12/01/18 13:43 POC Glucose (mg/dL) 308 mg/dL (65-110) H 12/06/18 11:04 Random Glucose 141 mg/dL (65-105) H 12/01/18 13:43 Calcium 9.6 mg/dl (8.6-10.4) 12/01/18 13:43 Total Bilirubin 0.5 mg/dL (0.2-1.3) 12/01/18 13:43 AST 29 U/L (14-36) 12/01/18 13:43 ALT 15 U/L (9-52) 12/01/18 13:43 Alkaline Phosphatase 65 U/L (38-126) 12/01/18 13:43 Troponin I < 0.0120 ng/mL (0.00-0.120) 12/01/18 13:43 C-Reactive Protein < 5.00 mg/L (0.0-9.9) 12/03/18 06:35 Total Protein 7.5 g/dL (6.3-8.3) 12/01/18 13:43 Albumin 4.3 g/dL (3.5-5.0) 12/01/18 13:43 Globulin 3.2 gm/dL (2.2-3.9) 12/01/18 13:43 Albumin/Globulin Ratio 1.4 (1.0-2.1) 12/01/18 13:43 Urine Color Straw (YELLOW) 12/01/18 14:25 Urine Clarity Clear (Clear) 12/01/18 14:25 Urine pH 6.0 (5.0-8.0) 12/01/18 14:25 Ur Specific [place] 1.005 (1.003-1.030) 12/01/18 14:25 Urine Protein Negative mg/dL (NEGATIVE) 12/01/18 14:25 Urine Glucose (UA) Normal mg/dL (Normal) 12/01/18 14:25 Urine Ketones Negative mg/dL (NEGATIVE) 12/01/18 14:25 Urine Blood Negative (NEGATIVE) 12/01/18 14:25 Urine Nitrate Negative (NEGATIVE) 12/01/18 14:25 Urine Bilirubin Negative (NEGATIVE) 12/01/18 14:25 Urine Urobilinogen Normal mg/dL (0.2-1.0) 12/01/18 14:25 Ur Leukocyte Esterase Neg Azeem/uL (Negative) 12/01/18 14:25 Urine WBC (Auto) < 1 /hpf (0-5) 12/01/18 14:25 Urine RBC (Auto) < 1 /hpf (0-3) 12/01/18 14:25 Ur Squamous Epith Cells 1 /hpf (0-5) 12/01/18 14:25 Discharge Exam - Head Exam Head Exam: ATRAUMATIC, NORMAL INSPECTION, NORMOCEPHALIC Discharge Plan - Discharge Medications Prescriptions: Divalproex [Depakote DR(*BID*)] 500 mg PO BID #60 tcp - Follow Up Plan Condition: STABLE Disposition: HOME/ ROUTINE Instructions: Dizziness, Nonvertigo, (DC), Valproic Acid and Derivatives Additional Instructions: Stop taking Keppra at home. You have been prescribed Depakote 500 mg for your seizures and depression. Take 2 times a day (in the morning and in the evening). Please see Dr. Bravo in the office as scheduled already on December 27. Call our office if you need anything or have any questions. Referrals: Ronnie Pereyra MD [Staff Provider] - Oneil Bravo MD [Staff Provider] - Jose Arana MD [Staff Provider] -
--- NOTE | 2018-12-07 05:52 | DS ---
DISCHARGE DIAGNOSES: 1. Dizziness, nonspecific. 2. Hypertension. 3. Hyperlipidemia. 4. Diabetes. HISTORY OF PRESENT ILLNESS AND HOSPITAL COURSE: This is a 78-year-old female with history of intracerebral bleeding in the past with a history of prior hospitalization treatment. The patient is compliant with her diet, medication, and followup. She came back with dizziness. The patient was admitted to the floor, started on neuro check, fall and seizure precaution. Neurology evaluation. The patient did well. No intracerebral bleed was found. The patient felt better. She is being discharged. She had CT angio of head and neck. Condition upon discharge is stable. PHYSICAL EXAMINATION: GENERAL: The patient is afebrile. VITAL SIGNS: Blood pressure 119/62, pulse 76, respiratory rate 20, temperature 97.4. LUNGS: Clear. CARDIOVASCULAR SYSTEM: S1 and S2, regular. ABDOMEN: Soft. CENTRAL NERVOUS SYSTEM: Normal. PLAN: Discharge the patient. Jose Arana MD
== END 2018-12-06 15:35 | disposition home or self-care (01) | DRG 72 ==
LOC: C.ER 13:13 → C.9E 14:43 → C.6T 17:55 → C.3T 12-05 13:41
PROVIDERS: ADMIT Internal Medicine; ATTEND Internal Medicine
DX: I67.2 Cerebral atherosclerosis (principal); E11.9 Type 2 diabetes mellitus without complications; I10 Essential (primary) hypertension; E78.5 Hyperlipidemia, unspecified; E78.00 Pure hypercholesterolemia, unspecified; I65.23 Occlusion and stenosis of bilateral carotid arteries; F32.9 Major depressive disorder, single episode, unspecified; M43.6 Torticollis; R56.9 Unspecified convulsions; Z79.899 Other long term (current) drug therapy; Z86.73 Personal history of transient ischemic attack (TIA), and cerebral infarction without residual deficits; Z90.49 Acquired absence of other specified parts of digestive tract; Z82.3 Family history of stroke; Z82.49 Family history of ischemic heart disease and other diseases of the circulatory system; Z79.4 Long term (current) use of insulin